=== PATIENT | female | born 1950 | race Caucasian/White ===

== ENCOUNTER 2017-06-23 20:33 | Inpatient (IN) | payer OTHER ==
[~2017-06-23] VITALS: Ht 170.2 cm; Wt 70.3 kg
[~2017-06-23 20:33] MED LIST: ACEPHEN650 M1 PR; ALBUTEROL2.5 MG/3 M INH/SOL; ALPRAZOLAM0.5 M4 PO; AMLODIPINE BES2.5 M1 PO; ASPIRIN EC81 M1 PO; ATORVASTATIN CA20 M1 PO; ATORVASTATIN CA40 M1 PO; COLACE100 M1 PO; DESITIN DIAPER28 GM TOP; DULCOLAX10 M1 RC; EPOGEN20000 UNIT INJ; FLEET ENEMA133 ML RC; FOLIC ACID1 M1 PO; FUROSEMIDE80 M1 PO; HUMALOG100 UNIT/2 SC; LANTUS SOL100 UNIT/1 SC; LASIX40 M1 PO; LEVEMIR100 UNIT/1 SC; LEVOXYL150 MCG PO; LYRICA75 M1 PO; MAPAP325 M1 PO; METOPROLOL TART25 M1 PO; MILK OF MA400 MG/52 PO; NITROGLYCERIN0.4 M1 SL; NITROGLYCERIN1 EACH TOP; NORCO 5-325 TA1 EACH PO; NYSTATIN15 G1 TOP; ONE DAILY MULT1 EAC2 PO; PLAVIX75 M1 PO; RABEPRAZOLE SOD20 M1 PO; SPIRIVA18 MCG INH; SYMBICORT 16010.2 GM INH; SYNTHROID125 MCG PO; SYNTHROID150 MCG PO; THIAMINE HCL100 M1 PO; VITAMIN D250000 UNIT PO; ZETIA10 M1 PO
--- NOTE | 2017-06-23 20:42 | ED DYSPNEA/ASTHMA COMPLAINT ---
History of Present Illness General Chief Complaint: Dyspnea (COPD, CHF, Other) Stated Complaint: BIBA FOR SOB Source: patient Exam Limitations: no limitations Vital Signs & Intake/Output Vital Signs & Intake/Output Vital Signs Date Time Temp Pulse Resp B/P B/P Pulse O2 O2 Flow FiO2 Mean Ox Delivery Rate 06/24 0101 97.9 98 17 133/61 94 Room Air 06/24 0012 97.0 89 20 154/70 96 Room Air 06/23 2259 98.4 86 18 135/66 98 Room Air 06/23 2243 98.2 86 18 158/72 95 Room Air 06/23 2127 100 Room Air 06/239 97.5 79 18 183/96 99 Room Air ED Intake and Output 06/24 0000 06/23 1200 Intake Total 0 Output Total Balance 0 Intake, Oral 0 Patient 155 lb Weight Allergies Coded Allergies: morphine (UNKNOWN 05/20/17) Reconcile Medications Acetaminophen (Mapap) 325 MG TABLET 2 TAB PO Q6H PRN PAIN/TEMP>100 (Reported) Acetaminophen (Acephen) 650 MG SUPP.RECT 1 SUPP [place] Q4H PRN PAIN/TEMP>100 ( Reported) Albuterol Sulfate 2.5 MG/3 ML (0.083 %) VIAL.NEB 1 Vial INH/JACKI Q4P RESP. ( Reported) Alprazolam 0.5 MG TABLET 0.25 MG PO QHS PRN ANXIETY (Reported) Amlodipine Besylate 2.5 MG TABLET 1 TAB PO DAILY HEART/BP (Reported) Aspirin (Ecotrin*) 81 MG TABLET.DR 1 TAB PO DAILY HEART/BLOOD (Reported) Atorvastatin Calcium 40 MG TABLET 1 TAB PO 1700 Heart Bisacodyl (Dulcolax) 10 MG SUPP.RECT 1 SUP RC DAILY CONSTIPATION (Reported) Budesonide/Formoterol Fumarate (Symbicort 160-4.5 Mcg Inhaler) 160 MCG-4.5 MCG/ ACTUATION HFA.AER.AD 2 PUF INH BID PRN copd Clopidogrel Bisulfate (Plavix) 75 MG TABLET 1 TAB PO DAILY CORONARY ARTERY DISEASE Cod Liver Oil/Zinc Oxide (Desitin Diaper Rash 40% Paste) 40 % PASTE..G. 1 RIAN TOP BID PRN RASH Docusate Sodium (Colace) 100 MG CAPSULE 1 CAP PO BID STOOL SOFTENER (Reported ) Epoetin Huey (Epogen) 20,000 UNIT/ML VIAL 1 ML INJ AD BLOOD (Reported) Ergocalciferol (Vitamin D2) (Vitamin D2) 50,000 UNIT CAPSULE 1 CAP PO Q30D SUPPLEMENT (Reported) Ezetimibe (Zetia) 10 MG TABLET 1 TAB PO DAILY CHOLESTEROL (Reported) Folic Acid 1 MG TABLET 1 TAB PO DAILY SUPPLEMENT (Reported) Furosemide (Lasix) 40 MG TABLET 1 TAB PO BID Heart Health Hydrocodone/Acetaminophen (Pelion 5-325 Tablet) 5 MG-325 MG TABLET 1 TAB PO Q6H PRN PAIN (Reported) Insulin Detemir (Levemir) 100 UNIT/ML VIAL 15 UNITS SC AT BEDTIME DM Insulin Lispro (Humalog) 100 UNIT/ML VIAL 0 SC SEE ADMIN CRITERIA DM <80 initiate hypoglycemia protocol 80-140 no change 141-180 2 units 181-240 3 units 241-300 4 units 301-350 6 units 351-400 8 units >400 12 units, inform Levothyroxine Sodium (Synthroid) 125 MCG TABLET 1 TAB PO DAILY AC Thyroid Magnesium Hydroxide (Milk Of Magnesia) 400 MG/5 ML ORAL.SUSP 30 ML PO DAILY PRN CONSTIPATION (Reported) Metoprolol Tartrate 25 MG TABLET 1 TAB PO BID CORONARY ARTERY DISEASE Multivitamin (One Daily Multivitamin) 1 EACH TABLET 1 TAB PO DAILY Supplement Na Phos,M-B/Na Phos,Di-Ba (Fleet Enema) 19 GRAM-7 GRAM/118 ML ENEMA 1 E RC DAILY PRN CONSTIPATION (Reported) Nitroglycerin (Nitroglycerin Patch) 0.4 MG/HOUR PATCH.TD24 0.4 MG TOP DAILY Heart Nystatin 100,000 UNIT/GRAM CREAM..G. 1 RIAN TOP BID Skin Pregabalin (Lyrica) 75 MG CAPSULE 1 CAP PO DAILY Neuropathy (Reported) Rabeprazole Sodium 20 MG TABLET.DR 1 TAB PO DAILY GI (Reported) Thiamine HCl 100 MG TABLET 1 TAB PO DAILY SUPPLEMENT (Reported) Tiotropium [place] (Spiriva) 18 MCG CAP.W.DEV 1 PUF INH DAILY PRN copd Triage Nurses Notes Reviewed? yes Onset: Abrupt Duration: hour(s): (1), better, gone now Timing: single episode today Severity: mild, moderate Activities at Onset: emotional stress Prior Episodes/Possible Cause: occasional episodes Associated Symptoms: anxiety LMP (ages 10-50): unknown : No Patient currently breastfeeds: No HPI: 66 y/o female past medical history of chronic kidney disease, diabetes, coronary artery disease, CHF and COPD presents for evaluation of shortness of breath. Patient states that she had an episode of panic and anxiety that was associated with shortness of breath. The symptoms lasted for approximately 15 minutes. She states that she took 0.25 mg of Xanax after the symptoms started. She states that the time she got to the emergency department she was feeling better. Currently she is asymptomatic and has no concerns. She states that the reason that she became panicked was because she had a stress test today and she was worried about the results. She denies any chest pain, hemoptysis, lower extremity edema, fever, nausea, vomiting or abdominal pain. No suicidal or homicidal ideation. (Lenny Fu) Past History Travel History Traveled to [place] past 21 day No Medical History Any Pertinent Medical History? see below for history Neurological: NONE Cardiovascular: hypertension, HEART FAILURE Renal: CHRONIC KIDNEY DISEASE Endocrine: diabetes History of MRSA: No History of VRE: No History of CDIFF: No Surgical History Surgical History: non-contributory Psychosocial History Who do you live with Spouse Services at Home None What is your primary language Kazakh Family History Family History, If Any: MOTHER FH: heart disease FATHER FH: heart disease Relation not specified for: Stroke or transient ischemic attack in sister Hx Contributory? No (Lenny Fu) Review of Systems Review of Systems Constitutional: Reports: no symptoms. EENTM: Reports: no symptoms. Respiratory: Reports: see HPI, short of breath. Cardiovascular: Reports: no symptoms. GI: Reports: no symptoms. Genitourinary: Reports: no symptoms. Musculoskeletal: Reports: no symptoms. Skin: Reports: no symptoms. Neurological/Psychological: Reports: anxiety. Hematologic/Endocrine: Reports: no symptoms. Immunologic/Allergic: Reports: no symptoms. All Other Systems: Reviewed and Negative (Lenny Fu) Physical Exam Physical Exam General Appearance: well developed/nourished, alert, awake, anxious, mild distress Head: atraumatic, normal appearance Eyes: Bilateral: normal appearance, PERRL, EOMI. Ears, Nose, Throat: normal pharynx, normal ENT inspection, hearing grossly normal Neck: normal inspection, supple, full range of motion Respiratory: normal breath sounds, chest non-tender, no respiratory distress, lungs clear Cardiovascular: regular rate/rhythm, normal peripheral pulses Peripheral Pulses: 2+ radial (R), 2+ radial (L) Gastrointestinal: normal bowel sounds, soft, non-tender, no organomegaly Extremities: normal inspection, normal range of motion, no edema Neurologic/Psych: no motor/sensory deficits, awake, alert, oriented x 3, normal gait Skin: intact, normal color, warm/dry Core Measures ACS in differential dx? Yes CVA/TIA Diagnosis No Sepsis Present: No Sepsis Focused Exam Completed? No (Lenny Fu) Progress Differential Diagnosis: asthma, AMI, bronchitis, CHF, COPD, musculoskeletal pain , pulmonary embolism, pneumonia, unstable angina, panic attack, anxiety Plan of Care: Orders Procedure Date/time Status PARTIAL THROMBOPLASTIN TIME 06/24 0655 Active TROPONIN LEVEL 06/24 0100 Complete EKG 06/24 0100 Active Patient Data 06/24 0053 Active EKG 06/24 0049 Active Admit to inpatient 06/24 0033 Active EKG 06/23 2341 Active FingerStick- Glucose 06/23 2259 Active Intake & Output 06/23 2125 Active URINALYSIS 06/23 2052 Complete TROPONIN LEVEL 06/23 2052 Complete COMPREHENSIVE METABOLIC PANEL 06/23 2052 Complete CBC WITHOUT DIFFERENTIAL 06/23 2052 Complete B-TYPE NATRIURETIC PEP (BNP) 06/23 2052 Complete EKG 06/23 2033 Active Current Medications Sig/Med Start time Last Medication Dose Stop Time Status Admin Nitroglycerin 2 GM Q6 06/24 0048 AC 06/24 (Nitro-Bid) 0101 Heparin Sodium 25,000 UNIT Q24H 06/24 0015 AC 06/24 (Porcine) 0054 (Heparin) Sodium Chloride 500 ML Insulin Detemir 25 UNITS ONCE ONE 06/23 2330 CAN (Levemir) 06/23 2331 Laboratory Tests 06/24/17 0027: Troponin I 0.02 06/23/172114: Anion Gap 14, Estimated GFR 32 L, BUN/Creatinine Ratio 20.0, Glucose 65, Calcium 10.0, Total Bilirubin 0.4, AST 49 H, ALT 42, Alkaline Phosphatase 100, Troponin I 0.02, Njq-P-Kbkraysyead Pept 3580 H, Total Protein 6.8, Albumin 3.9, Globulin 2.9, Albumin/Globulin Ratio 1.3, CBC w Diff NO MAN DIFF REQ, RBC 4.21, MCV 85.8, MCH 27.8, RDW 17.4 H, MPV 8.6, Gran % 58.0, Lymphocytes % 24.9, Monocytes % 12.2 H, Eosinophils % 4.3, Basophils % 0.6, Absolute Granulocytes 4.5, Absolute Lymphocytes 1.9, Absolute Monocytes 0.9 H, Absolute Eosinophils 0.3, Absolute Basophils 0, PUBS MCHC 32.4 L, Urine Color YEL, Urine Clarity CLEAR, Urine pH 7.0, Ur Specific [place] 1.010, Urine Protein 30 H, Urine Ketones NEG, Urine Nitrite NEG, Urine Bilirubin NEG, Urine Urobilinogen 0.2, Ur Leukocyte Esterase NEG, Ur Microscopic SEDIMENT EXAMINED, Urine RBC RARE, Urine Bacteria FEW H, Urine Hemoglobin TRACE-INTACT, Urine Glucose NEG Patient seen and evaluated. She currently is asymptomatic and feels well. She felt short of breath for approximately 15 minutes associated with extreme anxiety and panic symptoms. There was never any chest pain. Initial blood work is within normal limits including a negative EKG and troponin. Chest x-ray is clear. Patient's oxygen saturation is within normal limits. Patient was ambulated in the emergency department and did not desaturate. She remains asymptomatic. Patient will be kept in the emergency department for repeat EKG and troponin to rule out acute coronary syndrome. Around 11:45 PM patient had walked to the bathroom and was returning from the bathroom. She states that she suddenly felt chest pain and palpitations. The pain is located beneath her sternum. EKG ordered. EKG that was ordered after patient had started having chest pain reveals ST depressions in the chest leads. Patient will be admitted for unstable angina. Troponin ordered. Patient was also given nitroglycerin and aspirin. Patient sent to Dr. Arriaga pending admission Diagnostic Imaging: Viewed by Me: Radiology Read. Discussed w/RAD: Radiology Read. Radiology Impression: PATIENT: LORI BONILLA PRESENT AGE: 66 PATIENT ACCOUNT NO: [id number] : 50 LOCATION: [facility] ORDERING PHYSICIAN: Lenny CEDILLO SERVICE DATE: 06/23/17 EXAM TYPE: RAD - XRY-PORTABLE CHEST XRAY EXAMINATION: XR PORTABLE CHEST CLINICAL INFORMATION: 66-year-old female with shortness of breath. COMPARISON: Portable chest x-ray on 05/20/2017 and portable chest x-ray on 05/23/2017. (Pulmonary interstitial edema ). TECHNIQUE: Portable AP semierect view of the chest was obtained. FINDINGS: The prominent cardiac silhouette is unchanged. Pulmonary vascularity is normal. There is now no evidence of interstitial airspace pulmonary edema nor signs of pleural effusion. IMPRESSION: No signs of CHF at this time. DICTATED BY: Alfred James MD DATE/TIME DICTATED:06/23/172111 RETAIL BUSINESS MANAGER:DIVYA DATE /TIME TRANSCRIBED:06/23/172111 Initial ED EKG: normal sinus rhythm, non specific T wave abnormalities inferior leads Hand-Off Endorsed To: Kee Arriaga MD Endorsed Time: 2350 Pending: EKG, labs (Lenny Fu) Repeat EKG: changed (st depressions v4-v6) Comments: ekg#3... improvement in st seg depressions. (Kee Arriaga MD) Departure Departure Disposition: STILL A PATIENT Condition: Stable Referrals: Jose Francisco SHAW,Rob Valdovinos (PCP/Family) Departure Forms: Customer Survey General Discharge Information (Lenny Fu) Departure Clinical Impression Primary Impression: Unstable angina Comments 06/24/17, 0:35am... discussed with dr. goff who affirms plan for heparin, nitrates, aspirin. pt allergic to morphine... pt to be admitted to icu for close monitoring. Admission Note Spoke With: Poncho SHAW,Alfred Documentation of Exam: Documentation of any treatments & extenuating circumstances including Concerns Regarding Discharge (functional status, medication knowledge or non-compliance, living conditions, etc.) that warrant an admission rather than observation: pt with unstable angina with st segment depressions on EKG... follow up EKG is improved after interventions. pt merits icu level care for continual monitoring , ... discussed with cards. PA/REHABILITATION TEACHER Co-Sign Statement Statement: ED Attending supervision documentation- [x] I saw and evaluated the patient. I have also reviewed all the pertinent lab results and diagnostic results. I agree with the findings and the plan of care as documented in the PA's/REHABILITATION TEACHER's documentation. I assumed care of patient at 23:51, with the abnormal ekg...pt reported 8/10 substernal chest pain... pt given nitrates, aspirin, heparin, 02, with improvement in subsequent ekg. discussed with dr. morfin (cards) who concurs with plan. [] I have reviewed the ED Record and agree with the PA's/REHABILITATION TEACHER's documentation. [] Additions or exceptions (if any) to the PAs/REHABILITATION TEACHER's note and plan are summarized below: [] (Bart SHAW,Kee Villalta) Critical Care Note Critical Care Note Critical Care Time: 30-74 min (Khalif CEDILLO,Lenny)
--- NOTE | 2017-06-23 21:18 | RADIOLOGY REPORT ---
EXAMINATION: XR PORTABLE CHEST CLINICAL INFORMATION: 66-year-old female with shortness of breath. COMPARISON: Portable chest x-ray on 05/20/2017 and portable chest x-ray on 05/23/2017. (Pulmonary interstitial edema). TECHNIQUE: Portable AP semierect view of the chest was obtained. FINDINGS: The prominent cardiac silhouette is unchanged. Pulmonary vascularity is normal. There is now no evidence of interstitial airspace pulmonary edema nor signs of pleural effusion. IMPRESSION: No signs of CHF at this time.
[2017-06-23 21:29] LABS: ABSOLUTE BASOPHIL COUNT 0 /CUMM (0.0-0.2); ABSOLUTE EOSINOPHIL COUNT 0.3 /CUMM (0.0-0.7); ABSOLUTE GRANULOCYTE CT 4.5 /CUMM (1.4-6.5); ABSOLUTE LYMPH COUNT 1.9 /CUMM (1.2-3.4); ABSOLUTE MONOCYTE COUNT 0.9 /CUMM (0.10-0.60); BASOPHIL % 0.6 % (0.0-2.0); EOSINOPHIL % 4.3 % (0-5); HEMATOCRIT 36.2 % (37-47); MEAN CORPUSCULAR HGB 27.8 PG (27.0-31.0); MEAN CORPUSCULAR HGB CONC 32.4 G/DL (33.0-37.0); MEAN CORPUSCULAR VOLUME 85.8 FL (81.0-99.0); MEAN PLATELET VOLUME 8.6 FL (7.4-10.4); PLATELET COUNT 261 /CUMM (130-400); RBC DISTRIBUTION WIDTH 17.4 % (11.5-14.5); RED BLOOD CELL CT 4.21 /CUMM (4.20-5.40); WHITE BLOOD CELL COUNT 7.8 /CUMM (4.8-10.8)
--- NOTE | 2017-06-24 04:41 | History & Physical ---
Cameron SHAW,[facility] 06/24/17 0440: General Information and HPI MD Statement: I have seen and personally examined LORI BONILLA and documented this H&P. The patient is a 66 year old F who presented with a patient stated chief complaint of [chest pain]. Source of Information: patient Exam Limitations: no limitations History of Present Illness: Mr. 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 According to the patient, she has baseline anxiety for which she is on Xanax. Last night she has an episode of anxiety attack because she had a stress test today and she was worried about the results. Today she had another episode of anxiety attack around 7 PM and she decided to come to the ER. While in the ER on her way to the restroom she experienced central chest pain. Pain was nonradiating, 6-8/10 in intensity, which progressively got worse and stayed for 15-20 minutes. It was improved with sublingual nitroglycerin. Also reports palpitations associated with chest pain. Denies any previous similar episodes of chest pain and anxiety attacks. Denies any fever/chills, cough, sputum production, orthopnea, PND or worsening leg swelling Allergies/Medications Allergies: Coded Allergies: morphine (UNKNOWN 05/20/17) Home Med list Alprazolam 0.5 MG TABLET 0.5 MG PO BID PRN ANXIETY (Reported) Aspirin (Ecotrin*) 81 MG TABLET.DR 1 TAB PO DAILY HEART/BLOOD (Reported) Atorvastatin Calcium 40 MG TABLET 1 TAB PO 1700 Heart Budesonide/Formoterol Fumarate (Symbicort 160-4.5 Mcg Inhaler) 160 MCG-4.5 MCG/ ACTUATION HFA.AER.AD 2 PUF INH BID PRN copd Clopidogrel Bisulfate (Plavix) 75 MG TABLET 1 TAB PO DAILY CORONARY ARTERY DISEASE Docusate Sodium (Colace) 100 MG CAPSULE 1 CAP PO BID STOOL SOFTENER (Reported ) Epoetin Huey (Epogen) 20,000 UNIT/ML VIAL 1 ML INJ AD BLOOD (Reported) Ergocalciferol (Vitamin D2) (Vitamin D2) 50,000 UNIT CAPSULE 1 CAP PO ONCE A WEEK SUPPLEMENT (Reported) Ezetimibe (Zetia) 10 MG TABLET 1 TAB PO DAILY CHOLESTEROL (Reported) Ferrous Sulfate (IRON) 325 MG (65 MG IRON) TABLET 1 TAB PO DAILY SUPPLEMENT ( Reported) Folic Acid 1 MG TABLET 1 TAB PO DAILY SUPPLEMENT (Reported) Furosemide (Lasix) 40 MG TABLET 1 TAB PO BID Heart Health Hydrocodone/Acetaminophen ([place] 5-325 Tablet) 5 MG-325 MG TABLET 1 TAB PO Q6H PRN PAIN (Reported) Insulin Detemir (Levemir) 100 UNIT/ML VIAL 15 UNITS SC AT BEDTIME DM Insulin Lispro (Humalog) 100 UNIT/ML VIAL 0 SC SEE ADMIN CRITERIA DM <80 initiate hypoglycemia protocol 80-140 no change 141-180 2 units 181-240 3 units 241-300 4 units 301-350 6 units 351-400 8 units >400 12 units, inform Isosorbide Mononitrate (Isosorbide Mononitrate ER) 30 MG TAB.ER.24H 1 TAB PO DAILY angina . Levothyroxine Sodium (Synthroid) 125 MCG TABLET 1 TAB PO DAILY AC Thyroid Metoprolol Succinate 25 MG TAB 1 TAB PO DAILY blood pressure (Reported) Multivitamin (One Daily Multivitamin) 1 EACH TABLET 1 TAB PO DAILY Supplement Pregabalin (Lyrica) 75 MG CAPSULE 1 CAP PO BID neuropathy (Reported) Rabeprazole Sodium 20 MG TABLET.DR 1 TAB PO DAILY GI (Reported) Thiamine HCl (B-1) 100 MG TABLET 1 TAB PO DAILY SUPPLEMENT (Reported) Thiamine HCl 100 MG TABLET 1 TAB PO DAILY SUPPLEMENT (Reported) Tiotropium [place] (Spiriva) 18 MCG CAP.W.DEV 1 PUF INH DAILY PRN copd Past History Travel History Traveled to [place] past 21 day No Medical History Neurological: NONE Cardiovascular: hypertension, HEART FAILURE Gastrointestinal: colitis, GI Bleed Renal: CHRONIC KIDNEY DISEASE Endocrine: diabetes History of MRSA: No History of VRE: No History of CDIFF: No Surgical History Surgical History: non-contributory Past Family/Social History Family History Relations & Conditions if any MOTHER FH: heart disease FATHER FH: heart disease Relation not specified for: Stroke or transient ischemic attack in sister Psychosocial History Who Do You Live With? spouse Services at Home: None Smoking Status: Former Smoker ETOH Use: occasional use Illicit Drug Use: denies illicit drug use Functional Ability Ambulation: cane, walker Review of Systems Review of Systems Constitutional: Reports: no symptoms. EENTM: Reports: no symptoms. Cardiovascular: Reports: chest pain, palpitations. Respiratory: Reports: short of breath. GI: Reports: no symptoms. Genitourinary: Reports: no symptoms. Musculoskeletal: Reports: no symptoms. Skin: Reports: no symptoms. Neurological/Psychological: Reports: anxiety. Hematologic/Endocrine: Reports: no symptoms. Immunologic/Allergic: Reports: no symptoms. All Other Systems: Reviewed and Negative Exam & Diagnostic Data Last 24 Hrs of Vital Signs/I&O Vital Signs Date Time Temp Pulse Resp B/P B/P Pulse O2 O2 Flow FiO2 Mean Ox Delivery Rate 06/24 0531 97 Nasal 2.0L Cannula 06/24 0434 98.1 94 20 178/72 98 Nasal 2.0L Cannula 06/24 0101 97.9 98 17 133/61 94 Room Air 06/24 0012 97.0 89 20 154/70 96 Room Air 06/23 2259 98.4 86 18 135/66 98 Room Air 06/23 2243 98.2 86 18 158/72 95 Room Air 06/23 2127 100 Room Air 06/23 2039 97.5 79 18 183/96 99 Room Air Intake & Output 06/24 0800 06/24 0000 06/23 1600 Intake Total 0 Output Total Balance 0 Intake, Oral 0 Patient 155 lb 155 lb Weight Last 24 Hrs of Labs/Kevin: Laboratory Tests 06/24/17 0630: Sodium Pending, Potassium Pending, Chloride Pending, Carbon Dioxide Pending, Anion Gap Pending, BUN Pending, Creatinine Pending, BUN/Creatinine Ratio Pending , APTT Pending, CBC w Diff Pending, WBC Pending, RBC Pending, Hgb Pending, Hct Pending, MCV Pending, MCH Pending, RDW Pending, Plt Count Pending, MPV Pending, PUBS MCHC Pending 06/24/17 0027: Troponin I 0.02 06/23/175: Anion Gap 14, Estimated GFR 32 L, BUN/Creatinine Ratio 20.0, Glucose 65, Calcium 10.0, Total Bilirubin 0.4, AST 49 H, ALT 42, Alkaline Phosphatase 100, Troponin I 0.02, Uzw-U-Bmavdgiomic Pept 3580 H, Total Protein 6.8, Albumin 3.9, Globulin 2.9, Albumin/Globulin Ratio 1.3, CBC w Diff NO MAN DIFF REQ, RBC 4.21, MCV 85.8, MCH 27.8, RDW 17.4 H, MPV 8.6, Gran % 58.0, Lymphocytes % 24.9, Monocytes % 12.2 H, Eosinophils % 4.3, Basophils % 0.6, Absolute Granulocytes 4.5, Absolute Lymphocytes 1.9, Absolute Monocytes 0.9 H, Absolute Eosinophils 0.3, Absolute Basophils 0, PUBS MCHC 32.4 L, Urine Color YEL, Urine Clarity CLEAR, Urine pH 7.0, Ur Specific [place] 1.010, Urine Protein 30 H, Urine Ketones NEG, Urine Nitrite NEG, Urine Bilirubin NEG, Urine Urobilinogen 0.2, Ur Leukocyte Esterase NEG, Ur Microscopic SEDIMENT EXAMINED, Urine RBC RARE, Urine Bacteria FEW H, Urine Hemoglobin TRACE-INTACT, Urine Glucose NEG Microbiology 06/24 0500 UPPER RESP: Surveillance Culture - RECD Assessment/Plan Assessment: Mr. 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 Assessment and plan; 1. Chest pain/ unstable angina; Patient has LINDA score of 6 and even though her troponin level 2 was negative, she was found to have diffuse ST depressions on the EKG. - Admit the patient to ICU - We'll repeat troponins and EKG - Start the patient on IV heparin - Stool guaiac - Aspirin 325 mg x 1 - Continue nitroglycerin ointment, Plavix and high dose statin. - Cardiology consult 2. Diabetes; -Hold Oral Hypoglycemic agents. - ISS -ACCu checks 3. Chronic Medical conditions; - Continue Home medications. DVT prophylaxis; IV heparin Patient is full code As Ranked By This Provider Problem List: 1. Unstable angina Core Measures/Misc (02/15) Acute Coronary Syndrome ACS Diagnosis: Yes Last Known EF % 60 Congestive Heart Failure Congestive Heart Failure Diagnosis No Cerebrovascular Accident CVA/TIA Diagnosis: No VTE (View Protocol) VTE Risk Factors Age>40 No Mechanical VTE Prophylaxis d/t N/A MechProphylax Ordered No VTE Pharm Prophylaxis d/t NA PharmProphylax ordered Sepsis (View protocol) Sepsis Present: No Yvette Flanagan MD 06/24/17 0445: Resident Review Statement Resident Statement: examined this patient, discussed with international trade specialist, agreed with international trade specialist Other Findings: This is a 66-year-old female with past medical history for CK D III, diabetes with nephropathy/retinopathy, CAD status post 3 stents over 20 years ago, COPD and CHF who usually came in for chief complaint of shortness of breath. Around 7 PM today patient states that she became very anxious and worried about the results of the stress test that she had completed earlier this AM. Subsequently , she felt panicked, short of breath, and lightheaded. An ambulance was called and she states that after she had oxygen placed and her usual Xanax administered that she felt better. When she was evaluated in the ED initially she had no shortness of breath and was saturating well on room air. She never had a complaint of chest pain throughout the day. However, around 11:45 PM she got up to use the restroom in the ED and noted sudden onset chest pressure that was substernal, initially about a 6 out of 10. As she continued to walk to the bathroom and come back to sit down the chest pressure continued to worsen and increased to an 8 out of 10 sensation. It was associated with palpitations. She denies any radiation of the pain to jaw or to her shoulder. It was not associated with shortness of breath and was distinctly different from her previous anxiety attack. She states that she has never had this kind of chest pain. She was then given nitroglycerin which she states improved her chest pain. Notably, patient states that she had a panic attack that before the stress test as well. She does endorse baseline anxiety but this is a first time that she is ever experienced panic attacks. She denies current smoking but between the ages of [age] she smoked about half a pack per day. She endorses recreational use of alcohol and denies any IV drug abuse. Family history significant for OR in mother in her 50s. Surgical history pertinent for 3 stents placed and unknown back surgery. She was seen at in May 17 and was treated for colitis. During that admission she was found to have EKG changes with elevated troponin and treated for possible NSTEMI with heparin and medical management. The stress test today was a follow up of her previous admission. Physical exam: HEENT: Pupils equal and reactive to light bilaterally, extraocular movements intact. Neck: No JVD CV: Patient has normal S1 and S2 with 2 different murmurs. One is clearly systolic heard best at the right upper sternal border. The second murmur is shorter and perhaps diastolic at left sternal border and mitral area. No S3 appreciated. Pulmonary: Clear to auscultation bilaterally Abdomen: No tenderness, bowel sounds present 4. Lower extremity: 2+ edema in bilateral lower extremities. Assessment: This is a 66-year-old female with past medical history of HTN, IDDM, CAD s/p 3 stents, CHF, and COPD, who was initially brought in for shortness of breath due to anxiety. However in ED she developed typical anginal chest pain and subsequent EKG showed worsening ST depressions in all leads. Given EKG changes and chest pain in this patient with significant cardiac history there is concern for unstable angina. She has LINDA score of 6 with 41% risk of , OR or urgent revascularization by day 14. As such, admit patient to ICU for further monitoring and workup. 1. Unstable angina: Patient had typical anginal chest pain that did not remit at rest. It got better with nitroglycerin. Additionally, she has significant history of CAD and was seen recently in [facility] for an NSTEMI. Patient does not seem like she is in florid heart failure as her BNP is 3500 and with previous value noted at 19,800. Echo in May 21 shows mild LAE, TR, RVSP 45, mild , EF 65%. * Aspirin 325 * Continue Plavix * troponin EKG 3 * heparin drip * statin * nitroglycerin when necessary for pain * continue home metoprolol * oxygen when necessary * appreciate cardio consult * Hold Lasix * NOTE: Please verify meds in AM. 2. Diabetes: * NPO Insulin sliding scale * Fingerstick * Nothing by mouth for possible catheterization 3. COPD: * TRC 4.Anxiety: * Continue when necessary home Xanax 5. HTN: * Con't Amlodipine * Note pt got Nitro x2 in ED * Holding Lasix Alfred Isaac 06/24/17 0521: Attending MD Review Statement Attending Statement Attending MD Statement: examined this patient, discuss w/resident/PA/SQUIRREL MAN, agreed w/resident/PA/SQUIRREL MAN, reviewed EMR data (avail), reviewed images, amended to note Attending Assessment/Plan: CC: Shortness of breath PMH: HFpEF, mild , COPD, DM, HTN, CKD, KENN, RA, CAD s/p 3 stents (1993) Patient came to ER for acute episode of shortness of breath happened this evening. Patient underwent stress test earlier today. Patient usually feels anxious, had anxiety episode a night before stress test and she thought the shortness of breath episode was related to her anxiety. It was associated with mild dizziness but denied any chest pain at that time. She took a dose of benzodiazepine, came to ER for further evaluation and while in ER when she was going to bathroom she noticed chest pain which was substernal, nonradiating 6/10 in intensity which progressively worse to 8/10 in intensity, relieved by nitroglycerin and aspirin. Patient does not recall similar pain episodes before. She denies any cough, nasal congestion, sputum production, fever, chills, leg swellings, abdominal distention, presyncopal episode or syncope. Vitals: T 97.5, pulse 79, RR 18, blood pressure 183/96, saturating 94% on room air On exam: A O 3, cooperative, no acute distress, neck supple, JVD normal, no lymphadenopathy, mucosa moist, no focal neurological deficit, trace leg edema, no obvious skin rashes or inflammation CVS: S1-S2, RRR, systolic murmur A2. RS: Clear to auscultate bilaterally. Abdomen: Soft, NT, ND, bowel sounds present. Labs: CBC unremarkable, sodium 146, potassium 5.2, chloride 102, bicarbonate 30, BUN 32, creatinine 1.6, glucose 65, calcium 10.0, AST 49, ALT 42, alkaline phosphatase 100, troponin less than 0.02, proBNP [address] depression in anterolateral leads CXR: No signs of CHF at this time. A and P 66-year-old female with extensive past medical history presented in ER with acute shortness of breath episode happened this evening associated with dizziness, she had a stress test earlier today. She endorses similar episode a night before and cold relates both the episodes to anxiety but while in ER patient had chest pain which progressively worsened, substernal, relieved with nitroglycerin and aspirin. During that time patient had ST depression in anterolateral leads on ECG. First set of troponin negative, now patient is pain- free. General Assignment Reporter was called from ER, heparin drip was started. + Unstable angina + Hx of HFpEF, mild , COPD, DM, HTN, CKD, KENN, RA, CAD s/p 3 stents - Admit to ICU - Continuous telemetry monitoring - Serial troponin and EKGs - Cardiology consult in a.m. - Continue IV heparin, (please guaiac stool if not done) - Patient received aspirin in the ER - Continue home doses of beta kapil, statin - Continue her home medications - Sliding-scale insulin
--- NOTE | 2017-06-24 05:23 | Admission Certification ---
Admission Certification Certification Statement - As attending physician, I certify that at the time of - admission, based on clinical presentation, severity of - symptoms, need for further diagnostic testing and - therapeutic interventions, and risk of adverse outcomes - without in-hospital treatment, in my clinical assessment, - this patient requires an acute hospital stay for a minimum - of two nights or longer. I have also considered psychsocial - factors such as support system, advanced age, financial - issues, cognitive issues, and failed out-patient treatments, - past re-admission history, safety of patient, and lack of - compliance as applicable. Specific rationale supporting this admission is: unstable angina
--- NOTE | 2017-06-24 07:45 | Cons- CRCU ---
Ernestina SHAW,[facility] 06/24/17 0745: General Information and HPI Consulting Request Date of Consult: 06/24/17 Requested By: Dr Maria Victoria Pinto Source of Information: patient Exam Limitations: no limitations History of Present Illness: This is a 66-year-old female with past medical history for CKD stage III, diabetes complicated with nephropathy/retinopathy, CAD status post 3 stents over 20 years ago, COPD and CHF who came in with chief complaint of shortness of breath. Around 7 PM last night the patient states that she became very anxious and worried about the results of the stress test that she had completed earlier this AM. Subsequently, she felt short of breath, and lightheaded. An ambulance was called and she states that after she had oxygen placed and her usual Xanax administered after which she felt better. When she was evaluated in the ED initially she had no shortness of breath and was saturating well on room air. She never had a complaint of chest pain throughout the day. However, around 11: 45 PM she got up to use the restroom in the ED and noted sudden onset chest pressure that was substernal, initially about a 6 out of 10. As she continued to walk to the bathroom and come back to sit down the chest pressure continued to worsen and increased to an 8 out of 10 sensation. It was associated with palpitations. She denies any radiation of the pain to jaw or to her shoulder. It was not associated with shortness of breath and was distinctly different from her previous anxiety attack. She states that she has never had this kind of chest pain. She was then given nitroglycerin which she states improved her chest pain. Notably, patient states that she had a panic attack that before the stress test as well. She does endorse baseline anxiety but this is a first time that she is ever experienced panic attacks. She denies current smoking but between the ages of [age] she smoked about half a pack per day. She endorses recreational use of alcohol and denies any IV drug abuse. Family history significant for TN in mother in her 50s. Surgical history pertinent for 3 stents placed and unknown back surgery. She was seen at in May 17 and was treated for colitis. During that admission she was found to have EKG changes with elevated troponin and treated for possible NSTEMI with heparin and medical management. The stress test yesterday was a follow up of her previous admission. Allergies/Medications Allergies: Coded Allergies: morphine (UNKNOWN 05/20/17) Home Med List: Alprazolam 0.5 MG TABLET 0.5 MG PO BID PRN ANXIETY (Reported) Aspirin (Ecotrin*) 81 MG TABLET.DR 1 TAB PO DAILY HEART/BLOOD (Reported) Atorvastatin Calcium 40 MG TABLET 1 TAB PO 1700 Heart Budesonide/Formoterol Fumarate (Symbicort 160-4.5 Mcg Inhaler) 160 MCG-4.5 MCG/ ACTUATION HFA.AER.AD 2 PUF INH BID PRN copd Clopidogrel Bisulfate (Plavix) 75 MG TABLET 1 TAB PO DAILY CORONARY ARTERY DISEASE Docusate Sodium (Colace) 100 MG CAPSULE 1 CAP PO BID STOOL SOFTENER (Reported ) Epoetin Huey (Epogen) 20,000 UNIT/ML VIAL 1 ML INJ AD BLOOD (Reported) Ergocalciferol (Vitamin D2) (Vitamin D2) 50,000 UNIT CAPSULE 1 CAP PO ONCE A WEEK SUPPLEMENT (Reported) Ezetimibe (Zetia) 10 MG TABLET 1 TAB PO DAILY CHOLESTEROL (Reported) Ferrous Sulfate (IRON) 325 MG (65 MG IRON) TABLET 1 TAB PO DAILY SUPPLEMENT ( Reported) Folic Acid 1 MG TABLET 1 TAB PO DAILY SUPPLEMENT (Reported) Furosemide (Lasix) 40 MG TABLET 1 TAB PO BID Heart Health Hydrocodone/Acetaminophen ([place] 5-325 Tablet) 5 MG-325 MG TABLET 1 TAB PO Q6H PRN PAIN (Reported) Insulin Detemir (Levemir) 100 UNIT/ML VIAL 15 UNITS SC AT BEDTIME DM Insulin Lispro (Humalog) 100 UNIT/ML VIAL 0 SC SEE ADMIN CRITERIA DM <80 initiate hypoglycemia protocol 80-140 no change 141-180 2 units 181-240 3 units 241-300 4 units 301-350 6 units 351-400 8 units >400 12 units, inform Isosorbide Mononitrate (Isosorbide Mononitrate ER) 30 MG TAB.ER.24H 1 TAB PO DAILY angina . Levothyroxine Sodium (Synthroid) 125 MCG TABLET 1 TAB PO DAILY AC Thyroid Metoprolol Succinate 25 MG TAB 1 TAB PO DAILY blood pressure (Reported) Multivitamin (One Daily Multivitamin) 1 EACH TABLET 1 TAB PO DAILY Supplement Pregabalin (Lyrica) 75 MG CAPSULE 1 CAP PO BID neuropathy (Reported) Rabeprazole Sodium 20 MG TABLET. 1 TAB PO DAILY GI (Reported) Thiamine HCl (B-1) 100 MG TABLET 1 TAB PO DAILY SUPPLEMENT (Reported) Thiamine HCl 100 MG TABLET 1 TAB PO DAILY SUPPLEMENT (Reported) Tiotropium [place] (Spiriva) 18 MCG CAP.W.DEV 1 PUF INH DAILY PRN copd Review of Systems Review of Systems Constitutional: Reports: no symptoms. Cardiovascular: Denies: chest pain, palpitations. Respiratory: Denies: short of breath. GI: Reports: no symptoms. Musculoskeletal: Reports: no symptoms. Past History Travel History Traveled to [place] past 21 day No Medical History Neurological: NONE Cardiovascular: hypertension, HEART FAILURE Gastrointestinal: colitis, GI Bleed Renal: CHRONIC KIDNEY DISEASE Endocrine: diabetes Surgical History Surgical History: non-contributory Family History Relations & Conditions If Any: MOTHER FH: heart disease FATHER FH: heart disease Relation not specified for: Stroke or transient ischemic attack in sister Psychosocial History Where Do You Live? Home Who Do You Live With? spouse Services at Home: None Smoking Status: Former Smoker ETOH Use: occasional use Illicit Drug Use: denies illicit drug use Functional Ability Ambulation: cane, walker Exam & Diagnostic Data Last 24 Hrs of Vital Signs/I&O Vital Signs Date Time Temp Pulse Resp B/P B/P Pulse O2 O2 Flow FiO2 Mean Ox Delivery Rate 06/24 1028 98.4 81 16 155/60 06/24 1026 98.4 81 16 155/60 06/24 0800 99 Room Air Room Air 06/24 0800 98.4 84 18 146/66 99 Room Air Room Air 06/24 0531 97 Nasal 2.0L Cannula 06/24 0500 97 Room Air 06/24 0434 98.1 94 20 178/72 98 Nasal 2.0L Cannula 06/24 0101 97.9 98 17 133/61 94 Room Air 06/24 0012 97.0 89 20 154/70 96 Room Air 06/239 98.4 86 18 135/66 98 Room Air 06/23 2243 98.2 86 18 158/72 95 Room Air 06/23 2126 100 Room Air 06/23 2038 97.5 79 18 183/96 99 Room Air Intake & Output 06/24 1600 06/24 0800 06/24 0000 Intake Total 68 0 Output Total Balance 68 0 Intake, IV 68 Intake, Oral 0 Patient 155 lb 155 lb Weight Physical Exam General Appearance: well developed/nourished, no apparent distress, alert, awake , comfortable Head: atraumatic, normal appearance Eyes: Bilateral: normal appearance. Respiratory: normal breath sounds, chest non-tender, lungs clear Cardiovascular: regular rate/rhythm Gastrointestinal: normal bowel sounds, soft, non-tender Extremities: no edema Neurologic/Psych: awake, alert, oriented x 3 Last 48 Hrs of Labs/Kevin: Laboratory Tests 06/24/17 0630: Troponin I Cancelled 06/24/17 0630: Anion Gap 14, Estimated GFR 30 L, BUN/Creatinine Ratio 20.0, Troponin I 0.05, APTT 55 H, CBC w Diff NO MAN DIFF REQ, RBC 3.71 L, MCV 86.2, MCH 28.3, RDW 17.2 H, MPV 9.4, Gran % 64.4, Lymphocytes % 23.2, Monocytes % 7.8, Eosinophils % 4.1, Basophils % 0.5, Absolute Granulocytes 5.0, Absolute Lymphocytes 1.8, Absolute Monocytes 0.6, Absolute Eosinophils 0.3, Absolute Basophils 0, PUBS MCHC 32.8 L 06/24/17 0027: Troponin I 0.02 06/23/175: Anion Gap 14, Estimated GFR 32 L, BUN/Creatinine Ratio 20.0, Glucose 65, Calcium 10.0, Total Bilirubin 0.4, AST 49 H, ALT 42, Alkaline Phosphatase 100, Troponin I 0.02, Xtq-Y-Vkvuwxeqnia Pept 3580 H, Total Protein 6.8, Albumin 3.9, Globulin 2.9, Albumin/Globulin Ratio 1.3, CBC w Diff NO MAN DIFF REQ, RBC 4.21, MCV 85.8, MCH 27.8, RDW 17.4 H, MPV 8.6, Gran % 58.0, Lymphocytes % 24.9, Monocytes % 12.2 H, Eosinophils % 4.3, Basophils % 0.6, Absolute Granulocytes 4.5, Absolute Lymphocytes 1.9, Absolute Monocytes 0.9 H, Absolute Eosinophils 0.3, Absolute Basophils 0, PUBS MCHC 32.4 L, Urine Color YEL, Urine Clarity CLEAR, Urine pH 7.0, Ur Specific [place] 1.010, Urine Protein 30 H, Urine Ketones NEG, Urine Nitrite NEG, Urine Bilirubin NEG, Urine Urobilinogen 0.2, Ur Leukocyte Esterase NEG, Ur Microscopic SEDIMENT EXAMINED, Urine RBC RARE, Urine Bacteria FEW H, Urine Hemoglobin TRACE-INTACT, Urine Glucose NEG Assessment/Plan Impression/Plan: 66-year-old female with past medical history of HTN, IDDM, CAD s/p 3 stents, CHF , and COPD, who was initially brought in for shortness of breath due to anxiety. However in ED she developed typical anginal chest pain and subsequent EKG changes of ST depressions in all leads. Given EKG changes and chest pain in this patient with significant cardiac history there was concern for unstable angina. She has a LINDA score of 6 with 41% risk of , TN or urgent revascularization by day 14. Unstable Angina: Patient had typical anginal chest pain that did not remit at rest though she does mention improvement with SL Nitroglycerin. She has significant history of CAD and was seen recently in [facility] for an NSTEMI. Patient does not seem like she is in florid heart failure as her BNP is 3500 and with previous value noted at 19,800. Echo in May 21 shows mild LAE, TR, RVSP 45, mild , EF 65%. * Patient had a stress test yesterday which is reportedly normal with no signs of ischemia * She was offered a cardiac cath given her cardiac history, but at this point she refuses. * She will be managed medically. * Continue Aspirin and Plavix * Will add Imdur 30mg to home medications. * D/c heparin drip * Troponins have been negative x3 * Her EKG changes are suggestive of demand ischemia. * Continue atorvatatin * continue home metoprolol * appreciate cardio recs * Patient stable to be down graded to general medicine floor History of Diabetes: * Insulin sliding scale * Accucheks COPD: * TRC * continue home inhalers as needed. Anxiety: * Continue Xanax prn * Patient requests psych consult. History of Hypertension: * Con't Amlodipine and Furosemide. Diet: Diabetic diet DVT Prophylaxis: SC Heparin Code: Full Code Consult Acknowledgment - Thank you for your consult request. Dagoberto SHAW,[facility] 06/24/17 0958: Assessment/Plan Other Findings/Comments: Attending addendum Seen and examined independently Agree with above Mrs. 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 According to the patient, she has baseline anxiety for which she is on Xanax. Last night she has an episode of anxiety attack because she had a stress test today and she was worried about the results. Today she had another episode of anxiety attack around 7 PM and she decided to come to the ER. While in the ER on her way to the restroom she experienced central chest pain. Pain was nonradiating, 6-8/10 in intensity, which progressively got worse and stayed for 15-20 minutes. It was improved with sublingual nitroglycerin. Also reports palpitations associated with chest pain. Denies any previous similar episodes of chest pain and anxiety attacks. Denies any fever/chills, cough, sputum production, orthopnea, PND or worsening leg swelling When i saw her she was anxious and back to baseline Her ekg does have changes and her recent out pt ekg is not available to be compared Physical exam: HEENT: Pupils equal and reactive to light bilaterally, extraocular movements intact. Neck: No JVD CV: Patient has normal S1 and S2 with 2 different murmurs. One is clearly systolic heard best at the right upper sternal border. The second murmur is shorter and perhaps diastolic at left sternal border and mitral area. No S3 appreciated. Pulmonary: Clear to auscultation bilaterally Abdomen: No tenderness, bowel sounds present 4. Lower extremity: 2+ edema in bilateral lower extremities. 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, previous history of significant ischemic heart disease with previous stents in the early s, hypothyroidism on supplementation, chronic kidney disease stage III, significant rheumatoid arthritis on methotrexate before (seems to be off now), previous pancytopenia and her methotrexate had been held, obstructive sleep apnea not on cpap regularly, previous history of COPD not on any oxygen, previous multiple admissions in the past few months to [facility] and to [facility], and [facility], fracture fibula,previous history of delirium toxic encephalopathy and hyperkalemia and transaminitis, previous workup negative for venous thromboembolism, previous narcotic use with * Chest discomfort, with prob ekg changes (recent ekg not available), rule out acute coronary syndrome, Compounded by anxiety and prob panic attack * Recent Non-ST segment elevation TN with elevated troponin in dec, with previous history of multiple stents, T-wave inversions in the anterior and lateral leads in the past, pt s/p stress test yesterday and results pendin. * Chronic kidney disease with diabetic nephropathy * RA with previous methrotrexate use and now has been held * Mild to moderate COPD with no evidence of COPD exacerbation, pna or sig chf * Obstructive sleep apnea on CPAP, not using it regularly * Significant diabetes with complications including neuropathy, nephropathy, with previous hypoglycemia, now stable * Hypothyroidism on appropriate supplementation * Chronic constipation * Hypertension history, hyperlipidemia, previous GERD, neuropathy appears to be stable * Significant anxiety and depression due to multiple medical issues and chronic pain * Siatica with previous laminectomy with chronic pain RECOMMENDATION * Cardiology to evaluate * COnt all meds as ordered with heparin, DAPT and low dose betablocker * Avoid narcotics * Check tsh * Use Xanax only as needed, and psych eval may be needed * Tylenol for pain and avoid narcotics * Spiriva one puff daily, prn proair, * Resume out pt meds, hold narcotics and confirm her home meds with the [facility] Trasfer to tele and further plans per cardio Consult Acknowledgment - Thank you for your consult request.
[2017-06-24 07:50] LABS: ABSOLUTE BASOPHIL COUNT 0 /CUMM (0.0-0.2); ABSOLUTE EOSINOPHIL COUNT 0.3 /CUMM (0.0-0.7); ABSOLUTE LYMPH COUNT 1.8 /CUMM (1.2-3.4); ABSOLUTE MONOCYTE COUNT 0.6 /CUMM (0.10-0.60); BASOPHIL % 0.5 % (0.0-2.0); EOSINOPHIL % 4.1 % (0-5); GRANULOCYTE % 64.4 % (42.2-75.2); MEAN CORPUSCULAR HGB 28.3 PG (27.0-31.0); MEAN CORPUSCULAR HGB CONC 32.8 G/DL (33.0-37.0); MEAN CORPUSCULAR VOLUME 86.2 FL (81.0-99.0); MEAN PLATELET VOLUME 9.4 FL (7.4-10.4); PLATELET COUNT 220 /CUMM (130-400); RBC DISTRIBUTION WIDTH 17.2 % (11.5-14.5); RED BLOOD CELL CT 3.71 /CUMM (4.20-5.40); WHITE BLOOD CELL COUNT 7.8 /CUMM (4.8-10.8)
[2017-06-24 08:00] VITALS: BP 146/66
[2017-06-24 08:29] LABS: PTT 55 SEC (25-37)
--- NOTE | 2017-06-24 10:23 | Patient Discharge Instructions ---
Discharge Instructions General Discharge Information You were seen/treated for: Shortness of Breath Chest Pain Special Instructions: Please follow up with your PCP and tester operator helper within one week of discharge. intake appointment at [facility] on 06/29/17, at 1015 with Brianda, at [address], . Diet Continue normal diet: Yes Recommended Diet: Heart Healthy Activity Full Activity/No Limits: Yes Acute Coronary Syndrome Inclusion Criteria At DC or during hospital stay patient has or had the following: ACS DIAGNOSIS No Discharge Core Measures Meds if any: Prescribed or Continued at Discharge Meds if any: NOT Prescribed or Continued at Discharge Congestive Heart Failure Inclusion Criteria At DC or during hospital stay patient has or had the following: CHF DIAGNOSIS No Discharge Core Measures Meds if any: Prescribed or Continued at Discharge Meds if any: NOT Prescribed or Continued at Discharge Cerebrovascular accident Inclusion Criteria At DC or during hospital stay patient has or had the following: CVA/TIA Diagnosis No Discharge Core Measures Meds if any: Prescribed or Continued at Discharge Meds if any: NOT Prescribed or Continued at Discharge Venous thromboembolism Inclusion Criteria VTE Diagnosis No VTE Type NONE VTE Confirmed by (Test) NONE Discharge Core Measures - Per Current guidelines, there needs to be overlap - treatment for the first 5 days of Warfarin therapy. - If discharged on Warfarin prior to 5 days of - overlap therapy, the patient will need to be - assessed for post discharge needs including - *Post discharge parental anticoagulation - *Warfarin and/or parental anticoagulation education - *Follow up date to check INR post discharge At least 5 days overlap therapy as Inpatient No Meds if any: Prescribed or Continued at Discharge Note: Overlap Therapy is Warfarin and Anticoagulant Meds if any: NOT Prescribed or Continued at Discharge
--- NOTE | 2017-06-24 10:33 | Discharge Summary ---
Visit Information Visit Dates Admission Date: 06/24/17 Discharge Date: 06/27/17 Hospital Course Course Attending Physician: Dagoberto SHAW,Jordy Cortes Primary Care Physician: Rob Felton MD Hospital Course: Ms Small is a 66 year old female with past medical history of HTN, IDDM, CAD s/p 3 stents, CHF and COPD, who was initially brought in for shortness of breath due to anxiety. However in ED she experienced some chest discomfort with subsequent findings of diffuse ST depressions changes on EKG. Given her significant cardiac history with anginal symptoms/EKG changes there was concern for unstable angina. Below is a list of conditions she was admitted and treated for: Demand Ischemia: Patient was admitted and monitored for concerns of unstable angina. She was worked up for ACS and her troponins were negative. Her symptoms of chest discomfort with EKG changes were likely due to demand ischemia. Her outpatient stress test was reported to have normal perfusion. Given her cardiac history, she was offered consideration for cardiac catheteriazation but she refused and prefers medical therapy for angina. We added Ranexa and Imdur to her medication regimen for better control of her symtoms. She had a stable course in the hospital. She was discharge in stable disposition with recommendations to follow up with her director of strategic initiatives within one week of discharge. Anxiety: Patient reported that she started having difficulty breathing after she became concerned over the results of her stress tests that was performed a day prior to her admission. She has an underlying diagnosis of anxiety for which she was on Alprazolam. She was evaluated by our psychiatrist and recommended to be started on Ativan 0.5mg Q 4 times/D prn along with Gabapentin 100mg TID prn for anxiety. She has an intake appointment at [facility] on 06/29/17, at 1015 with [facility], at [address] [facility], . A card with this information was provided to the patient. History of Diabetes: She was maintained on Novolog insulin with regular Accucheks COPD: Continued on home inhalers. History of Hypertension: Continued on Amlodipine and Furosemide. DVT Prophylaxis: Maintained with SC Heparin Allergies: Coded Allergies: morphine (UNKNOWN 05/20/17) Significant Procedures: SERVICE DATE: 06/26/17- EXAM TYPE: NUC - LUNG SCAN (V/Q) FINDINGS: Ventilation images: On the single breath and equilibrium images there is homogeneous distribution of gas bilaterally. During the washout phase there is no abnormal retention. Perfusion images: No segmental perfusion defects are present. There is homogeneous distribution of activity bilaterally. There are no focal anatomic appearing perfusion defects present. IMPRESSION: Normal radionuclide lung ventilation perfusion scan. SERVICE DATE: 06/23/17 EXAM TYPE: RAD - XRY-PORTABLE CHEST XRAY FINDINGS: The prominent cardiac silhouette is unchanged. Pulmonary vascularity is normal. There is now no evidence of interstitial airspace pulmonary edema nor signs of pleural effusion. IMPRESSION: No signs of CHF at this time. Disposition Summary Disposition Principal Diagnosis: Unstable Angina Anxiety Additional Diagnosis: COPD Hypertension Diabetes Discharge Disposition: home health services Discharge Instructions General Discharge Information Code Status: Full Code Patient's Diet: Diabetic Patient's Activity: As tolerated Follow-Up Instructions/Appts: Please follow up with your PCP and director of strategic initiatives within one week of discharge. The patient has an intake appointment at [facility] on 06/29/17, at 1015 with [facility] at [address] [place] [address], . A card withthis information was provided to the patient. Medications at Discharge Discharge Medications: Stop taking the following medications: Alprazolam (Alprazolam) 0.5 MG TABLET ORAL TWICE DAILY as needed for ANXIETY Qty = 60 Continue taking these medications: Docusate Sodium (Colace) 100 MG CAPSULE 1 Capsule ORAL TWICE DAILY Comments: NOT GIVEN IN HOSPITAL Epoetin Huey (Epogen) 20,000 UNIT/ML VIAL 1 Millilit[place] INJECTABLE As Directed Comments: NOT GIVEN IN HOSPITAL Thiamine HCl (Thiamine HCl) 100 MG TABLET 1 Tablet ORAL DAILY Comments: Last Taken:06/27/17 Time:1000AM Rabeprazole Sodium (Rabeprazole Sodium) 20 MG TABLET.DR 1 Tablet ORAL DAILY Qty = 180 Comments: Last Taken: 06/27/17 Time: 1000AM Pregabalin (Lyrica) 75 MG CAPSULE 1 Capsule ORAL TWICE DAILY Qty = 60 Comments: NOT GIVEN IN HOSPITAL Aspirin (Ecotrin*) 81 MG TABLET.DR 1 Tablet ORAL DAILY Comments: Last Taken: 06/27/17 Time:1000AM Ergocalciferol (Vitamin D2) (Vitamin D2) 50,000 UNIT CAPSULE 1 Capsule ORAL ONCE A WEEK Comments: NOT GIVEN IN HOSPITAL Ezetimibe (Zetia) 10 MG TABLET 1 Tablet ORAL DAILY Qty = 90 Comments: Last Taken: 06/27/17 Time:1000AM Folic Acid (Folic Acid) 1 MG TABLET 1 Tablet ORAL DAILY Comments: Last Taken: 06/27/17 Time:1000AM Hydrocodone/Acetaminophen ([place] 5-325 Tablet) 5 MG-325 MG TABLET 1 Tablet ORAL Q6H as needed for PAIN Comments: NOT GIVEN IN HOSPITAL Clopidogrel Bisulfate (Plavix) 75 MG TABLET 1 Tablet ORAL DAILY Qty = 30 Comments: Last Taken: 06/27/17 Time:1000AM Furosemide (Lasix) 40 MG TABLET 1 Tablet ORAL TWICE DAILY Qty = 30 Comments: Last Taken: 06/27/17 Time:1000AM Insulin Detemir (Levemir) 100 UNIT/ML VIAL 15 Units Inject into fatty tissue AT BEDTIME Qty = 5 Comments: Last Taken: 06/26/17 Time: 2200PM Levothyroxine Sodium (Synthroid) 125 MCG TABLET 1 Tablet ORAL DAILY BEFORE BREAKFAST Qty = 30 Comments: NOT GIVEN IN HOSPITAL Multivitamin (One Daily Multivitamin) 1 EACH TABLET 1 Tablet ORAL DAILY Qty = 30 Comments: NOT GIVEN IN HOSPITAL Tiotropium [place] (Spiriva) 18 MCG CAP.W.DEV 1 Puff Inhale through mouth DAILY as needed for copd Qty = 1 Comments: Last Taken: 06/27/17 Time:1000AM Budesonide/Formoterol Fumarate (Symbicort 160-4.5 Mcg Inhaler) 160 MCG-4.5 MCG/ ACTUATION HFA.AER.AD 2 Puff Inhale through mouth TWICE DAILY as needed for copd Qty = 1 Comments: Last Taken: 06/27/17 Time:1000AM Atorvastatin Calcium (Atorvastatin Calcium) 40 MG TABLET 1 Tablet ORAL 5 PM Qty = 30 Comments: Last Taken: 06/26/17 Time:1700PM Insulin Lispro (Humalog) 100 UNIT/ML VIAL 0 Inject into fatty tissue SEE INSTRUCTIONS Qty = 5 Instructions: <80 initiate hypoglycemia protocol 80-140 no change 141-180 2 units 181-240 3 units 241-300 4 units 301-350 6 units 351-400 8 units >400 12 units, inform MD Comments: Last Taken: 06/27/17 Time: 0800AM Metoprolol Succinate (Metoprolol Succinate) 25 MG TAB 1 Tablet ORAL DAILY Comments: Last Taken: 06/27/17 Time: 1000AM Ferrous Sulfate (IRON) 325 MG (65 MG IRON) TABLET 1 Tablet ORAL DAILY Comments: NOT GIVEN IN HOSPITAL Start taking the following new medications: Lorazepam (Lorazepam) 0.5 MG TABLET 1 Tablet ORAL 4 TIMES A DAY as needed for ANXIETY Qty = 45 No Refills Instructions: ONLY TAKE IF SEVERE ANXIETY OR PANIC Comments: NOT GIVEN IN HOPSITAL Gabapentin (Gabapentin) 100 MG CAPSULE 1 Capsule ORAL THREE TIMES DAILY Qty = 90 No Refills Instructions: . Comments: Last Taken: 06/26/17 Time: 2100PM Isosorbide Mononitrate (Isosorbide Mononitrate ER) 60 MG TAB.ER.24H 1 Tablet ORAL DAILY Qty = 30 No Refills Instructions: . Comments: Last Taken: 06/27/17 Time: 1000AM Ranolazine (Ranexa) 500 MG TAB.ER.12H 1 Tablet ORAL TWICE DAILY Qty = 60 No Refills Instructions: . Comments: Last Taken: 06/27/17 Time: 1000AM Copies To: Jose Francisco SHAW,Rob Valdovinos
--- NOTE | 2017-06-24 11:02 | Cons- Cardiology ---
General Information and HPI Consulting Request Date of Consult: 06/24/17 Requested By: Dagoberto SHAW,Jordy Cortes Reason for Consult: Coronary artery disease; EKG changes Source of Information: patient, old records History of Present Illness: This is a 66-year-old female with past medical history of known coronary artery disease with remote PCI, diabetes mellitus, CKD, COPD, sleep apnea, hypertension , inflammatory arthritis, and hypertension who presents with a chief complaint of anxiety and moderate intensity chest discomfort. The patient tells me "I had a panic attack" and then subsequently began experiencing some nonradiating sternal chest discomfort with some improvement with nitroglycerin. Of note the patient had a type II myocardial infarction in May with no regional wall motion abnormalities by echo can't. She did undergo a nuclear stress test in our office yesterday and was very anxious about the pending results which she feels triggered a panic attack. This morning she is asymptomatic. She denies headache, slurring of speech, syncope, proximal nocturnal dyspnea, or focal weakness. Denies diaphoresis. Allergies/Medications Allergies: Coded Allergies: morphine (UNKNOWN 05/20/17) Home Med List: Acetaminophen (Mapap) 325 MG TABLET 2 TAB PO Q6H PRN PAIN/TEMP>100 (Reported) Acetaminophen (Acephen) 650 MG SUPP.RECT 1 SUPP MN Q4H PRN PAIN/TEMP>100 ( Reported) Albuterol Sulfate 2.5 MG/3 ML (0.083 %) VIAL.NEB 1 Vial INH/JACKI Q4P RESP. ( Reported) Alprazolam 0.5 MG TABLET 0.25 MG PO QHS PRN ANXIETY (Reported) Amlodipine Besylate 2.5 MG TABLET 1 TAB PO DAILY HEART/BP (Reported) Aspirin (Ecotrin*) 81 MG TABLET.DR 1 TAB PO DAILY HEART/BLOOD (Reported) Atorvastatin Calcium 40 MG TABLET 1 TAB PO 1700 Heart Bisacodyl (Dulcolax) 10 MG SUPP.RECT 1 SUP RC DAILY CONSTIPATION (Reported) Budesonide/Formoterol Fumarate (Symbicort 160-4.5 Mcg Inhaler) 160 MCG-4.5 MCG/ ACTUATION HFA.AER.AD 2 PUF INH BID PRN copd Clopidogrel Bisulfate (Plavix) 75 MG TABLET 1 TAB PO DAILY CORONARY ARTERY DISEASE Cod Liver Oil/Zinc Oxide (Desitin Diaper Rash 40% Paste) 40 % PASTE..G. 1 RIAN TOP BID PRN RASH Docusate Sodium (Colace) 100 MG CAPSULE 1 CAP PO BID STOOL SOFTENER (Reported ) Epoetin Huey (Epogen) 20,000 UNIT/ML VIAL 1 ML INJ AD BLOOD (Reported) Ergocalciferol (Vitamin D2) (Vitamin D2) 50,000 UNIT CAPSULE 1 CAP PO Q30D SUPPLEMENT (Reported) Ezetimibe (Zetia) 10 MG TABLET 1 TAB PO DAILY CHOLESTEROL (Reported) Folic Acid 1 MG TABLET 1 TAB PO DAILY SUPPLEMENT (Reported) Furosemide (Lasix) 40 MG TABLET 1 TAB PO BID Heart Health Hydrocodone/Acetaminophen ([place] 5-325 Tablet) 5 MG-325 MG TABLET 1 TAB PO Q6H PRN PAIN (Reported) Insulin Detemir (Levemir) 100 UNIT/ML VIAL 15 UNITS SC AT BEDTIME DM Insulin Lispro (Humalog) 100 UNIT/ML VIAL 0 SC SEE ADMIN CRITERIA DM <80 initiate hypoglycemia protocol 80-140 no change 141-180 2 units 181-240 3 units 241-300 4 units 301-350 6 units 351-400 8 units >400 12 units, inform Isosorbide Mononitrate (Isosorbide Mononitrate ER) 30 MG TAB.ER.24H 1 TAB PO DAILY angina Levothyroxine Sodium (Synthroid) 125 MCG TABLET 1 TAB PO DAILY AC Thyroid Magnesium Hydroxide (Milk Of Magnesia) 400 MG/5 ML ORAL.SUSP 30 ML PO DAILY PRN CONSTIPATION (Reported) Metoprolol Tartrate 25 MG TABLET 1 TAB PO BID CORONARY ARTERY DISEASE Multivitamin (One Daily Multivitamin) 1 EACH TABLET 1 TAB PO DAILY Supplement Na Phos,M-B/Na Phos,Di-Ba (Fleet Enema) 19 GRAM-7 GRAM/118 ML ENEMA 1 E RC DAILY PRN CONSTIPATION (Reported) Nitroglycerin (Nitroglycerin Patch) 0.4 MG/HOUR PATCH.TD24 0.4 MG TOP DAILY Heart Nystatin 100,000 UNIT/GRAM CREAM..G. 1 RIAN TOP BID Skin Pregabalin (Lyrica) 75 MG CAPSULE 1 CAP PO DAILY Neuropathy (Reported) Rabeprazole Sodium 20 MG TABLET.DR 1 TAB PO DAILY GI (Reported) Thiamine HCl 100 MG TABLET 1 TAB PO DAILY SUPPLEMENT (Reported) Tiotropium [place] (Spiriva) 18 MCG CAP.W.DEV 1 PUF INH DAILY PRN copd Current Medications: Current Medications Sig/Med Start time Last Medication Dose Route Stop Time Status Admin Acetaminophen 975 MG ONCE ONE 06/24 0100 DC 06/24 PO 06/24 010 010 Acetaminophen 0 .STK-MED ONE 06/24 0059 DC PO Alprazolam 0.25 MG AT BEDTIME NEED.. 06/24 0515 AC PO 07/01 0514 Amlodipine Besylate 2.5 MG DAILY 06/24 1000 AC 06/24 PO 1028 Aspirin 0 .STK-MED ONE 06/24 0010 DC PO Aspirin 325 MG ONCE ONE 06/23 2345 DC 06/24 PO 06/23 2346 0012 Aspirin Buffered 81 MG DAILY 06/24 1000 AC 06/24 PO 1026 Atorvastatin Calcium 40 MG 1700 06/24 1700 AC PO Clopidogrel Bisulfate 75 MG DAILY 06/24 1000 AC 06/24 PO 1026 Heparin Sodium 0 .STK-MED ONE 06/24 005 DC (Porcine) .ROUTE Heparin Sodium 4,000 UNIT ONCE ONE 06/245 DC 06/24 (Porcine) IV 06/24 0016 0053 Heparin Sodium 25,000 UNIT Q24H 06/24 0015 AC 06/24 (Porcine) IV 0054 Sodium Chloride 500 ML Insulin Detemir 25 UNITS ONCE ONE 06/24 0100 DC 06/24 SC 06/24 100 010 Insulin Detemir 25 UNITS ONCE ONE 06/23 2330 CAN SC 06/23 2331 Insulin Human Regular 0 Q6 06/24 0600 AC 06/24 SC 0817 Lorazepam 0 .STK-MED ONE 06/23 2134 DC PO Lorazepam 1 MG ONE ONE 06/23 2129 DC 06/23 PO 06/23 2130 213 Metoprolol Tartrate 25 MG BID 06/24 1000 AC 06/24 PO 1026 Nitroglycerin 0.4 MG ONCE ONE 06/24 0100 DC 06/24 SL 06/24 0101 0101 Nitroglycerin 0 .STK-MED ONE 06/24 010 DC TOP Nitroglycerin 2 GM Q6 06/24 0048 AC 06/24 TOP 0630 Nitroglycerin 0 .STK-MED ONE 06/24 0010 DC SL Nitroglycerin 0.4 MG ONCE ONE 06/23 2345 DC 06/24 06/23 2346 0012 Review of Systems Review of Systems: Review of systems as per HPI. The remainder of a 10 point review of systems was reviewed and was otherwise negative. Past History Travel History Traveled to [place] past 21 day No Medical History Neurological: NONE Cardiovascular: hypertension, HEART FAILURE Gastrointestinal: colitis, GI Bleed Renal: CHRONIC KIDNEY DISEASE Endocrine: diabetes Surgical History Surgical History: non-contributory Family History Relations & Conditions If Any: MOTHER FH: heart disease FATHER FH: heart disease Relation not specified for: Stroke or transient ischemic attack in sister Psychosocial History Where Do You Live? Home Who Do You Live With? spouse Services at Home: None Smoking Status: Former Smoker ETOH Use: occasional use Illicit Drug Use: denies illicit drug use Functional Ability Ambulation: cane, walker Exam & Diagnostic Data Vital Signs and I&O Vital Signs Date Time Temp Pulse Resp B/P B/P Pulse O2 O2 Flow FiO2 Mean Ox Delivery Rate 06/24 1028 98.4 81 16 155/60 06/24 1026 98.4 81 16 155/60 06/24 0531 97 Nasal 2.0L Cannula 06/24 0500 97 Room Air 06/24 0434 98.1 94 20 178/72 98 Nasal 2.0L Cannula 06/24 0101 97.9 98 17 133/61 94 Room Air 06/24 0012 97.0 89 20 154/70 96 Room Air 06/23 2259 98.4 86 18 135/66 98 Room Air 06/23 2243 98.2 86 18 158/72 95 Room Air 06/23 2127 100 Room Air 06/23 2039 97.5 79 18 183/96 99 Room Air Intake & Output 06/24 1600 06/24 0800 06/24 0000 06/23 1600 06/23 0800 06/23 0000 Intake Total 68 0 Output Total Balance 68 0 Intake, IV 68 Intake, Oral 0 Patient 155 lb 155 lb Weight Physical Exam: General: no apparent distress. Alert. Eyes: No obvious scleral icterus. HEENT: No jugular venous distention or abnormal jugular venous pulsations. Cardiovascular: Normal intensity S1/S2. One out of 6 systolic murmur Respiratory: Lungs clear to auscultation bilaterally. Abdomen: Soft, nontender with no guarding or rebound tenderness. Musculoskeletal: No clubbing or cyanosis noted Skin: Warm Neurologic: No gross focal deficits noted. Lymph: No gross lymphadenopathy. Labs/Kevin Results: Laboratory Tests 06/24 06/24 06/24 0630 0630 0027 Chemistry Sodium (137 - 145 mmol/L) 143 Potassium (3.5 - 5.1 mmol/L) 3.9 Chloride (98 - 107 mmol/L) 101 Carbon Dioxide (22 - 30 mmol/L) 28 Anion Gap (5 - 16) 14 BUN (7 - 17 mg/dL) 34 H Creatinine (0.5 - 1.0 mg/dL) 1.7 H Estimated GFR (>60 ml/min) 30 L BUN/Creatinine Ratio (7 - 25 %) 20.0 Troponin I (< 0.11 ng/ml) Cancelled 0.05 0.02 Coagulation APTT (25 - 37 SEC) 55 H Hematology CBC w Diff NO MAN DIFF REQ WBC (4.8 - 10.8 /CUMM) 7.8 RBC (4.20 - 5.40 /CUMM) 3.71 L Hgb (12.0 - 16.0 G/DL) 10.5 L Hct (37 - 47 %) 32.0 L MCV (81.0 - 99.0 FL) 86.2 MCH (27.0 - 31.0 PG) 28.3 RDW (11.5 - 14.5 %) 17.2 H Plt Count (130 - 400 /CUMM) 220 MPV (7.4 - 10.4 FL) 9.4 Gran % (42.2 - 75.2 %) 64.4 Lymphocytes % (20.5 - 51.1 %) 23.2 Monocytes % (1.7 - 9.3 %) 7.8 Eosinophils % (0 - 5 %) 4.1 Basophils % (0.0 - 2.0 %) 0.5 Absolute Granulocytes (1.4 - 6.5 /CUMM) 5.0 Absolute Lymphocytes (1.2 - 3.4 /CUMM) 1.8 Absolute Monocytes (0.10 - 0.60 /CUMM) 0.6 Absolute Eosinophils (0.0 - 0.7 /CUMM) 0.3 Absolute Basophils (0.0 - 0.2 /CUMM) 0 PUBS MCHC (33.0 - 37.0 G/DL) 32.8 L 06/23 2114 Chemistry Sodium (137 - 145 mmol/L) 146 H Potassium (3.5 - 5.1 mmol/L) 5.2 H Chloride (98 - 107 mmol/L) 102 Carbon Dioxide (22 - 30 mmol/L) 30 Anion Gap (5 - 16) 14 BUN (7 - 17 mg/dL) 32 H Creatinine (0.5 - 1.0 mg/dL) 1.6 H Estimated GFR (>60 ml/min) 32 L BUN/Creatinine Ratio (7 - 25 %) 20.0 Glucose (65 - 99 mg/dL) 65 Calcium (8.4 - 10.2 mg/dL) 10.0 Total Bilirubin (0.2 - 1.3 mg/dL) 0.4 AST (14 - 36 U/L) 49 H ALT (9 - 52 U/L) 42 Alkaline Phosphatase (<127 U/L) 100 Troponin I (< 0.11 ng/ml) 0.02 [id number] Pept (<125 pg/mL) 3580 H Total Protein (6.3 - 8.2 g/dL) 6.8 Albumin (3.5 - 5.0 g/dL) 3.9 Globulin (1.9 - 4.2 gm/dL) 2.9 Albumin/Globulin Ratio (1.1 - 2.2 %) 1.3 Hematology CBC w Diff NO MAN DIFF REQ WBC (4.8 - 10.8 /CUMM) 7.8 RBC (4.20 - 5.40 /CUMM) 4.21 Hgb (12.0 - 16.0 G/DL) 11.7 L Hct (37 - 47 %) 36.2 L MCV (81.0 - 99.0 FL) 85.8 MCH (27.0 - 31.0 PG) 27.8 RDW (11.5 - 14.5 %) 17.4 H Plt Count (130 - 400 /CUMM) 261 MPV (7.4 - 10.4 FL) 8.6 Gran % (42.2 - 75.2 %) 58.0 Lymphocytes % (20.5 - 51.1 %) 24.9 Monocytes % (1.7 - 9.3 %) 12.2 H Eosinophils % (0 - 5 %) 4.3 Basophils % (0.0 - 2.0 %) 0.6 Absolute Granulocytes (1.4 - 6.5 /CUMM) 4.5 Absolute Lymphocytes (1.2 - 3.4 /CUMM) 1.9 Absolute Monocytes (0.10 - 0.60 /CUMM) 0.9 H Absolute Eosinophils (0.0 - 0.7 /CUMM) 0.3 Absolute Basophils (0.0 - 0.2 /CUMM) 0 PUBS MCHC (33.0 - 37.0 G/DL) 32.4 L Urines Urine Color (YEL,AMB,STR) YEL Urine Clarity (CLEAR) CLEAR Urine pH (5.0 - 8.0) 7.0 Ur Specific [place] (1.001 - 1.035) 1.010 Urine Protein (NEG,<30 MG/DL) 30 H Urine Ketones (NEG) NEG Urine Nitrite (NEG) NEG Urine Bilirubin (NEG) NEG Urine Urobilinogen (0.1 - 1.0 EU/dl) 0.2 Ur Leukocyte Esterase (NEG) NEG Ur Microscopic SEDIMENT EXAMINED Urine RBC (0 - 5 /HPF) RARE Urine Bacteria (NEG/NONE) FEW H Urine Hemoglobin (NEG) TRACE-INTACT Urine Glucose (N MG/DL) NEG Diagnostic Data EKG Results Tracing personally reviewed showed sinus rhythm at 87 bpm with mild lateral ST depressions CXR Results No signs of CHF at this time. Other Results Telemetry tracings were personally reviewed and shows sinus rhythm Pharmacologic nuclear stress test done as outpatient yesterday showed normal perfusion pattern Assessment/Plan Assessment/Plan 1. Chest discomfort with EKG changes and negative troponins are likely due to demand ischemia in the setting of anxiety attack 2. Chronic anxiety 3. Coronary artery disease with history of remote PCI 4. COPD/sleep apnea 5. Diabetes 6. HTN The patient's episode likely represents an episode of demand ischemia in the setting of known coronary artery disease; appears to have been triggered by an anxiety attack. She is hemodynamically stable with no arrhythmias on telemetry and serial troponins are negative. She had a nuclear stress test yesterday that showed grossly normal perfusion. Recent echocardiogram on prior hospitalization showed no regional wall motion abnormalities. I did discuss my suspicion that this was due to cardiac ischemia and discussed potential options including the possibility of a cardiac catheterization; at this time she declines a cardiac catheterization and prefers attempt at medical management. She should be continued on her outpatient medication regimen for known coronary artery disease and I would favor adding Imdur 30 mg by mouth daily for additional antianginal management. She will likely also benefit from more aggressive therapy for her recurrent anxiety in the future. She is instructed to return to the hospital via 911 if any new or recurrent symptoms. She should follow-up in our office within one week of discharge. Zac Bishop MD FAC Consult Acknowledgment - Thank you for your consult request.
[2017-06-24] MEDS ORDERED: ISOSORBIDE MONO30 M1 PO ×2 (11:21→11:33)
[2017-06-24] MEDS ORDERED: TOPROL XL25 M1 PO (13:34)
[2017-06-24] MEDS ORDERED: METOPROLOL SUCC25 M1 PO (13:38)
[2017-06-24] MEDS ORDERED: B-1100 MG PO (14:40)
[2017-06-24] MEDS ORDERED: FOLIC ACID1 M1 PO (14:40)
[2017-06-24] MEDS ORDERED: IRON325 M3 PO (14:42)
[2017-06-24 16:00] VITALS: BP 140/60
[2017-06-25] VITALS: BP 140/80
[2017-06-25 05:03] LABS: ABSOLUTE BASOPHIL COUNT 0.1 /CUMM (0.0-0.2); ABSOLUTE EOSINOPHIL COUNT 0.3 /CUMM (0.0-0.7); ABSOLUTE GRANULOCYTE CT 3.6 /CUMM (1.4-6.5); ABSOLUTE LYMPH COUNT 1.4 /CUMM (1.2-3.4); ABSOLUTE MONOCYTE COUNT 0.6 /CUMM (0.10-0.60); BASOPHIL % 0.9 % (0.0-2.0); EOSINOPHIL % 4.7 % (0-5); GRANULOCYTE % 61.2 % (42.2-75.2); HEMATOCRIT 32.1 % (37-47); MEAN CORPUSCULAR HGB 28.5 PG (27.0-31.0); MEAN CORPUSCULAR VOLUME 86.3 FL (81.0-99.0); MEAN PLATELET VOLUME 8.9 FL (7.4-10.4); PLATELET COUNT 223 /CUMM (130-400); RBC DISTRIBUTION WIDTH 16.9 % (11.5-14.5); RED BLOOD CELL CT 3.72 /CUMM (4.20-5.40); WHITE BLOOD CELL COUNT 5.9 /CUMM (4.8-10.8)
--- NOTE | 2017-06-25 07:39 | PN- Resident CRCU ---
Subjective HPI/CRCU Issues: Chest Pain SOB Anxiety 24 Hour Events: No events overnight. Objective Vital Signs & I&O Last 8 Hrs of Vitals and I&O: Intake & Output 06/25 1600 Intake Total 800 Output Total Balance 800 Intake, Oral 800 Exam General Appearance: well developed/nourished, no apparent distress, alert, awake , anxious Head: atraumatic, normal appearance Respiratory: normal breath sounds, chest non-tender, lungs clear Cardiovascular: regular rate/rhythm Gastrointestinal: soft, non-tender Extremities: no edema Cranial Nerves: normal hearing, normal speech Skin: intact, normal color, warm/dry Skin Temp/Moisture Exam: Warm/Dry Sepsis Skin Exam (color): Normal for Ethnicity Current Medications: Current Medications Sig/Med Start time Last Medication Dose Route Stop Time Status Admin Alprazolam 0.5 MG BID PRN 06/24 1330 DC PO 07/01 1329 Amlodipine Besylate 5 MG DAILY 06/26 1000 AC PO Amlodipine Besylate 2.5 MG ONCE ONE 06/25 1430 DC 06/25 PO 06/25 1431 1431 Amlodipine Besylate 2.5 MG DAILY 06/24 1000 DC 06/24 PO 1028 Aspirin Buffered 81 MG DAILY 06/24 1000 AC 06/25 PO 0817 Atorvastatin Calcium 40 MG 1700 06/24 1700 AC 06/24 PO 1654 Budesonide/ 2 PUF BID 06/24 1500 AC 06/25 Formoterol Fumarate INH 0819 Clopidogrel Bisulfate 75 MG DAILY 06/24 1000 AC 06/25 PO 0818 Ezetimibe 10 MG DAILY 06/25 1000 AC 06/25 PO 0818 Famotidine 20 MG DAILY 06/25 1000 AC 06/25 PO 0818 Folic Acid 1 MG DAILY 06/25 1000 AC 06/25 PO 0817 Furosemide 40 MG BID 06/24 2200 AC 06/25 PO 0818 Gabapentin 100 MG Q8 06/25 1145 AC 06/25 PO 1432 Heparin Sodium 5,000 UNIT Q8 06/24 2200 AC 06/25 (Porcine) SC 1432 Insulin Aspart 0 TIDAC 06/24 1200 AC 06/25 SC 1219 Insulin Detemir 20 UNITS AT BEDTIME 06/25 2200 AC SC Insulin Detemir 15 UNITS DAILY 06/25 1000 DC SC Insulin Detemir 7 UNITS BID 06/25 1000 DC 06/25 SC 1044 Isosorbide 30 MG DAILY 06/24 1501 AC 06/25 Mononitrate PO 0817 Lorazepam 0.5 MG ONCE ONE 06/25 1500 DC 06/25 IV 06/25 1501 1457 Lorazepam 0.5 MG ONCE ONE 06/24 1915 DC 06/24 IV 06/24 Lorazepam 0.5 MG BID PRN 06/24 1730 AC 06/25 PO 07/01 1729 0818 Metoprolol Succinate 25 MG DAILY 06/25 1000 AC 06/25 PO 1044 Metoprolol Tartrate 25 MG BID 06/24 1000 DC 06/24 PO 2222 Ranolazine 500 MG BID 06/25 1000 AC 06/25 PO 1045 Thiamine HCl 100 MG DAILY 06/25 1000 AC 06/25 PO 0818 Tiotropium [place] 1 PUF DAILY 06/24 1500 AC 06/25 INH 0819 Impression/Plan Impression/Problem List Impression: 66-year-old female with past medical history of HTN, IDDM, CAD s/p 3 stents, CHF , and COPD, who was initially brought in for shortness of breath due to anxiety. However in ED she developed typical anginal chest pain and subsequent EKG changes of ST depressions in all leads. Given EKG changes and chest pain in this patient with significant cardiac history there was concern for unstable angina. She has a LINDA score of 6 with 41% risk of , FL or urgent revascularization by day 14. Unstable Angina: Patient had typical anginal chest pain that did not remit at rest though she does mention improvement with SL Nitroglycerin. She has significant history of CAD and was seen recently in [facility] for an NSTEMI. Patient does not seem like she is in florid heart failure as her BNP is 3500 and with previous value noted at 19,800. Echo in May 21 shows mild LAE, TR, RVSP 45, mild , EF 65%. * Patient had a stress test 06/23 which is reportedly normal with no signs of ischemia * She was offered a cardiac cath given her cardiac history, but at this point she refuses. * She will be managed medically. * Continue Aspirin and Plavix * Will add Imdur 30mg and Ranexa 500mg to home medications to optimize medical therapy. * Troponins have been negative x3 * Her EKG changes are suggestive of demand ischemia. * Continue atorvatatin * continue home metoprolol * appreciate cardio recs * Patient stable to be down graded to general medicine floor History of Diabetes: * Insulin sliding scale * Accucheks COPD: * TRC * continue home inhalers as needed. Anxiety: * Was evaluated by psychiatry today. * Recommend Lorazepam 0.5 mg PO up to 3X/day, as needed, for panic or severe anxiety. * Gabapentin 100 mg PO 3X/day for anxiety. Can be gradually titrated up. History of Hypertension: * Con't Amlodipine and Furosemide. Diet: Diabetic diet DVT Prophylaxis: SC Heparin Code: Full Code Problem List: 1. Shortness of breath Pain Ratin Tomorrow's Labs & Rationales: CBC, BEP Plan DVT/Prophylaxis: pharmacological
[2017-06-25 08:00] VITALS: BP 170/70
--- NOTE | 2017-06-25 08:31 | PN- Cardiology ---
Subjective Subjective: Patient sitting out of bed in a chair. She is off telemetry. She is awaiting a general medical bed. She appears somewhat stressed but comfortable. Objective Vital Signs and I&Os Vital Signs Date Time Temp Pulse Resp B/P B/P Pulse O2 O2 Flow FiO2 Mean Ox Delivery Rate 06/25 0000 93 Nasal 2.0L Cannula 06/25 0000 97.7 82 20 140/80 93 Nasal 2.0L Cannula 06/24 2222 98.2 66 16 160/70 06/24 1654 98.2 82 18 140/60 06/24 1600 95 Room Air Room Air 06/24 1600 98.2 82 18 140/60 95 Room Air Room Air 06/24 1200 99 Room Air Room Air 06/24 1028 98.4 81 16 155/60 06/24 1026 98.4 81 16 155/60 Intake & Output 06/25 1600 06/25 0800 06/25 0000 06/24 1600 06/24 0800 06/24 0000 Intake Total 100 400 317 68 0 Output Total 500 Balance 100 -100 317 68 0 Intake, IV 147 68 Intake, Oral 100 400 170 0 Output, Urine 500 Patient 155 lb 155 lb Weight Physical Exam: On general exam she appeared comfortable. Occasionally she would have a sighing respiration. Head normocephalic atraumatic Eyes sclera anicteric conjunctiva showed no pallor extraocular muscles were normal Neck no jugular venous distention no thyroid masses no palpable nodes Chest lungs were clear bilaterally Heart regular rhythm with a 1 to 2/6 systolic murmur Abdomen soft no organomegaly Extremities no cyanosis or pedal edema. Extent neurological no gross motor or sensory deficits. Current Medications: Current Medications Sig/Med Start time Last Medication Dose Route Stop Time Status Admin Alprazolam 0.5 MG BID PRN 06/24 1330 DC PO 07/01 1329 Alprazolam 0.25 MG AT BEDTIME NEED.. 06/24 0515 DC PO 07/01 0514 Amlodipine Besylate 2.5 MG DAILY 06/24 1000 DC 06/24 PO 1028 Aspirin Buffered 81 MG DAILY 06/24 1000 AC 06/24 PO 1026 Atorvastatin Calcium 40 MG 1700 06/24 1700 AC 06/24 PO 1654 Budesonide/ 2 PUF BID 06/24 1500 AC 06/24 Formoterol Fumarate INH 2222 Clopidogrel Bisulfate 75 MG DAILY 06/24 1000 AC 06/24 PO 1026 Ezetimibe 10 MG DAILY 06/25 1000 AC PO Famotidine 20 MG DAILY 06/25 1000 AC PO Folic Acid 1 MG DAILY 06/25 1000 AC PO Furosemide 40 MG BID 06/24 2200 AC 06/24 PO 2221 Heparin Sodium 5,000 UNIT Q8 06/24 2200 AC 06/25 (Porcine) SC 0537 Heparin Sodium 25,000 UNIT Q24H 06/24 0015 DC 06/24 (Porcine) IV 0054 Sodium Chloride 500 ML Insulin Aspart 0 TIDAC 06/24 1200 AC SC Insulin Detemir 15 UNITS DAILY 06/25 1000 DC SC Insulin Detemir 7 UNITS BID 06/25 1000 AC SC Insulin Human Regular 0 Q6 06/24 0600 DC 06/24 SC 0817 Isosorbide 30 MG DAILY 06/24 1501 AC 06/24 Mononitrate PO 1654 Lorazepam 0.5 MG ONCE ONE 06/24 1915 DC 06/24 IV 06/24 1916 1912 Lorazepam 0.5 MG BID PRN 06/24 1730 AC 06/24 PO 07/01 1729 1848 Lorazepam 0.5 MG ONCE ONE 06/24 1345 DC 06/24 IV 06/24 1346 1340 Metoprolol Succinate 25 MG DAILY 06/25 1000 UNVr PO Metoprolol Tartrate 25 MG BID 06/24 1000 DC 06/24 PO 2222 Nitroglycerin 2 GM Q6 06/24 0048 DC 06/24 TOP 0630 Thiamine HCl 100 MG DAILY 06/25 1000 AC PO Tiotropium [place] 1 PUF DAILY 06/24 1500 AC 06/24 INH 1654 Results Last 48 Hrs of Labs/Mics: Laboratory Tests 06/25/17 0410: Anion Gap 14, Estimated GFR 35 L, Glucose 299 H, Calcium 9.0, Phosphorus 4.6 H, Magnesium 2.1, Total Bilirubin 0.4, AST 31, ALT 46, Albumin 3.1 L, CBC w Diff NO MAN DIFF REQ, RBC 3.72 L, MCV 86.3, MCH 28.5, MCHC 33.0, RDW 16.9 H, MPV 8.9, Gran % 61.2, Lymphocytes % 23.2, Monocytes % 10.0 H, Eosinophils % 4.7 , Basophils % 0.9, Absolute Granulocytes 3.6, Absolute Lymphocytes 1.4, Absolute Monocytes 0.6, Absolute Eosinophils 0.3, Absolute Basophils 0.1 06/24/17 1500: APTT Cancelled 06/24/17 0630: Troponin I Cancelled 06/24/17 0630: Anion Gap 14, Estimated GFR 30 L, BUN/Creatinine Ratio 20.0, Troponin I 0.05, TSH 3.770, APTT 55 H, CBC w Diff NO MAN DIFF REQ, RBC 3.71 L, MCV 86.2, MCH 28.3, MCHC 32.8 L, RDW 17.2 H, MPV 9.4, Gran % 64.4, Lymphocytes % 23.2, Monocytes % 7.8, Eosinophils % 4.1, Basophils % 0.5, Absolute Granulocytes 5.0, Absolute Lymphocytes 1.8, Absolute Monocytes 0.6, Absolute Eosinophils 0.3, Absolute Basophils 0 06/24/17 0027: Troponin I 0.02 06/23/17 2115: Anion Gap 14, Estimated GFR 32 L, BUN/Creatinine Ratio 20.0, Glucose 65, Calcium 10.0, Total Bilirubin 0.4, AST 49 H, ALT 42, Alkaline Phosphatase 100, Troponin I 0.02, Dje-Z-Ybfozihgqks Pept 3580 H, Total Protein 6.8, Albumin 3.9, Globulin 2.9, Albumin/Globulin Ratio 1.3, CBC w Diff NO MAN DIFF REQ, RBC 4.21, MCV 85.8, MCH 27.8, RDW 17.4 H, MPV 8.6, Gran % 58.0, Lymphocytes % 24.9, Monocytes % 12.2 H, Eosinophils % 4.3, Basophils % 0.6, Absolute Granulocytes 4.5, Absolute Lymphocytes 1.9, Absolute Monocytes 0.9 H, Absolute Eosinophils 0.3, Absolute Basophils 0, PUBS MCHC 32.4 L, Urine Color YEL, Urine Clarity CLEAR, Urine pH 7.0, Ur Specific [place] 1.010, Urine Protein 30 H, Urine Ketones NEG, Urine Nitrite NEG, Urine Bilirubin NEG, Urine Urobilinogen 0.2, Ur Leukocyte Esterase NEG, Ur Microscopic SEDIMENT EXAMINED, Urine RBC RARE, Urine Bacteria FEW H, Urine Hemoglobin TRACE-INTACT, Urine Glucose NEG Assessment/Plan Assessment/Plan Summary this 66-year-old female has the following problems 1. Chest discomfort with EKG changes and negative troponins are likely due to demand ischemia in the setting of anxiety attack 2. Chronic anxiety 3. Coronary artery disease with history of remote PCI 4. COPD/sleep apnea 5. Diabetes 6. HTN X He continues to have chest discomfort intermittently only on questioning otherwise she's quite comfortable sitting in a chair. She does have risk factors of coronary artery disease. Troponins have been serially negative. Nuclear stress test showed normal perfusion. Echocardiogram showed normal left ventricular systolic function. She has been daughter has supply demand ischemia with negative troponins. She also could have syndrome X. Suggest Ranexa 500 mg twice a day. May need to increase amlodipine to 5 mg a day for better blood pressure control. General med transfer is okay. Continue telemetry? No
--- NOTE | 2017-06-25 10:49 | PN- CRCU ---
Subjective HPI/Critical Care Issues: Stable Still anxious On ra 97 percent Objective Current Medications: Current Medications Sig/Med Start time Last Medication Dose Route Stop Time Status Admin Alprazolam 0.5 MG BID PRN 06/24 1330 DC PO 07/01 1329 Alprazolam 0.25 MG AT BEDTIME NEED.. 06/24 0515 DC PO 07/01 0514 Amlodipine Besylate 2.5 MG DAILY 06/24 1000 DC 06/24 PO 1028 Aspirin Buffered 81 MG DAILY 06/24 1000 AC 06/25 PO 0817 Atorvastatin Calcium 40 MG 1700 06/24 1700 AC 06/24 PO 1654 Budesonide/ 2 PUF BID 06/24 1500 AC 06/25 Formoterol Fumarate INH 0819 Clopidogrel Bisulfate 75 MG DAILY 06/24 1000 AC 06/25 PO 0818 Ezetimibe 10 MG DAILY 06/25 1000 AC 06/25 PO 0818 Famotidine 20 MG DAILY 06/25 1000 AC 06/25 PO 0818 Folic Acid 1 MG DAILY 06/25 1000 AC 06/25 PO 0817 Furosemide 40 MG BID 06/24 2200 AC 06/25 PO 0818 Heparin Sodium 5,000 UNIT Q8 06/24 2200 AC 06/25 (Porcine) SC 0537 Heparin Sodium 25,000 UNIT Q24H 06/24 0015 DC 06/24 (Porcine) IV 0054 Sodium Chloride 500 ML Insulin Aspart 0 TIDAC 06/24 1200 AC 06/25 SC 0817 Insulin Detemir 15 UNITS DAILY 06/25 1000 DC SC Insulin Detemir 7 UNITS BID 06/25 1000 AC SC Insulin Human Regular 0 Q6 06/24 0600 DC 06/24 SC 0817 Isosorbide 30 MG DAILY 06/24 1501 AC 06/25 Mononitrate PO 0817 Lorazepam 0.5 MG ONCE ONE 06/24 1915 DC 06/24 IV 06/24 1916 1912 Lorazepam 0.5 MG BID PRN 06/24 1730 AC 06/25 PO 07/01 1729 0818 Lorazepam 0.5 MG ONCE ONE 06/24 1345 DC 06/24 IV 06/24 1346 1340 Metoprolol Succinate 25 MG DAILY 06/25 1000 AC PO Metoprolol Tartrate 25 MG BID 06/24 1000 DC 06/24 PO 2222 Nitroglycerin 2 GM Q6 06/24 0048 DC 06/24 TOP 0630 Ranolazine 500 MG BID 06/25 1000 AC PO Thiamine HCl 100 MG DAILY 06/25 1000 AC 06/25 PO 0818 Tiotropium [place] 1 PUF DAILY 06/24 1500 AC 06/25 INH 0819 Vital Signs & I&O Last 24 Hrs of Vitals and I&O: Vital Signs Date Time Temp Pulse Resp B/P B/P Pulse O2 O2 Flow FiO2 Mean Ox Delivery Rate 06/25 0817 88 170/70 06/25 0800 Room Air 06/25 0800 98.3 88 18 170/70 97 Room Air 06/25 0000 93 Nasal 2.0L Cannula 06/25 0000 97.7 82 20 140/80 93 Nasal 2.0L Cannula 06/24 2222 98.2 66 16 160/70 06/24 1654 98.2 82 18 140/60 06/24 1600 95 Room Air Room Air 06/24 1600 98.2 82 18 140/60 95 Room Air Room Air 06/24 1200 99 Room Air Room Air Intake & Output 06/25 1600 06/25 0800 06/25 0000 Intake Total 100 400 Output Total 500 Balance 100 -100 Intake, Oral 100 400 Output, Urine 500 Impression/Plan Impression/Plan Impression/Plan: Physical exam: HEENT: Pupils equal and reactive to light bilaterally, extraocular movements intact. Neck: No JVD CV: Patient has normal S1 and S2 with 2 different murmurs. One is clearly systolic heard best at the right upper sternal border. The second murmur is shorter and perhaps diastolic at left sternal border and mitral area. No S3 appreciated. Pulmonary: Clear to auscultation bilaterally Abdomen: No tenderness, bowel sounds present 4. Lower extremity: 2+ edema in bilateral lower extremities. 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, previous history of significant ischemic heart disease with previous stents in the early , hypothyroidism on supplementation, chronic kidney disease stage III, significant rheumatoid arthritis on methotrexate before (seems to be off now), previous pancytopenia and her methotrexate had been held, obstructive sleep apnea not on cpap regularly, previous history of COPD not on any oxygen, previous multiple admissions in the past few months to and to [facility], and [facility], fracture fibula,previous history of delirium toxic encephalopathy and hyperkalemia and transaminitis, previous workup negative for venous thromboembolism, previous narcotic use with * Resolved Chest discomfort, with prob ekg changes (recent ekg not available), No evidence of active ACS, and her symptoms are Compounded by anxiety and prob panic attack * Recent Non-ST segment elevation UT with elevated troponin in dec, with previous history of multiple stents, T-wave inversions in the anterior and lateral leads in the past, pt s/p stress test yesterday and per cardio she had no active ischemia and her EF is normal * Chronic kidney disease with diabetic nephropathy, stable * RA with previous methrotrexate use and now has been held * Mild to moderate COPD with no evidence of COPD exacerbation, pna or sig chf * Obstructive sleep apnea on CPAP, not using it regularly * Significant diabetes with complications including neuropathy, nephropathy, with previous hypoglycemia, now stable * Hypothyroidism on appropriate supplementation * Chronic constipation * Hypertension history, hyperlipidemia, previous GERD, neuropathy appears to be stable * Significant anxiety and depression due to multiple medical issues and chronic pain RECOMMENDATION * Cardiology evaluatation reviewed and pt can be dcd home * COnt all meds as ordered with new sugg per cardio * Avoid narcotics CTPMP checked no narcotics since 04/17 * Use Xanax only as needed, and psych eval may be needed * Tylenol for pain and avoid narcotics * Spiriva one puff daily, prn proair, * PSych eval to be done Ok to dc with new meds Consult Acknowledgment - Thank you for your consult request.
--- NOTE | 2017-06-25 12:30 | Cons- Psychiatry ---
Psychiatric Consult Date of Consult: 06/25/17 Reason for Consult: Anxiety-panic attacks History of Present Illness: 66 F with history of multiple presentations to [facility] for broken fibulla , Hx toxic encephalopathy, hyperkalemia and transaminitis, non-ST MT in May, was BIBA for acute onset of SOB and chest tightness. She has been treated in the past for ischemic heart disease with stents, diabetes with neuropathy and retinopathy, hypothyroidism on supplementation, CKD Stg III, rheumatoid arthritis on methotraxate, KENN on CPAP, COPD not on oxygen. She has been treated with alprazolam for at least a year, per CTP. she has a long history of smoking. She reports a social glass of wine, which she has not had in months. She has no history of psychiatric diagnosis or treatment, other than alprazolam from her PCP. She lives at home with her supportive and daughter. Allergies: Coded Allergies: morphine (UNKNOWN 05/20/17) Current Medications: Current Medications Sig/Med Start time Last Medication Dose Route Stop Time Status Admin Alprazolam 0.5 MG BID PRN 06/24 1330 DC PO 07/01 1329 Alprazolam 0.25 MG AT BEDTIME NEED.. 06/24 0515 DC PO 07/01 0514 Amlodipine Besylate 2.5 MG DAILY 06/24 1000 DC 06/24 PO 1028 Aspirin Buffered 81 MG DAILY 06/24 1000 AC 06/25 PO 0817 Atorvastatin Calcium 40 MG 1700 06/24 1700 AC 06/24 PO 1654 Budesonide/ 2 PUF BID 06/24 1500 AC 06/25 Formoterol Fumarate INH 0819 Clopidogrel Bisulfate 75 MG DAILY 06/24 1000 AC 06/25 PO 0818 Ezetimibe 10 MG DAILY 06/25 1000 AC 06/25 PO 0818 Famotidine 20 MG DAILY 06/25 1000 AC 06/25 PO 0818 Folic Acid 1 MG DAILY 06/25 1000 AC 06/25 PO 0817 Furosemide 40 MG BID 06/24 2200 AC 06/25 PO 0818 Gabapentin 100 MG Q8 06/25 1145 UNVr PO Heparin Sodium 5,000 UNIT Q8 06/24 2200 AC 06/25 (Porcine) SC 0537 Heparin Sodium 25,000 UNIT Q24H 06/24 0015 DC 06/24 (Porcine) IV 0054 Sodium Chloride 500 ML Insulin Aspart 0 TIDAC 06/24 1200 AC 06/25 SC 0817 Insulin Detemir 20 UNITS AT BEDTIME 06/25 2200 AC SC Insulin Detemir 15 UNITS DAILY 06/25 1000 DC SC Insulin Detemir 7 UNITS BID 06/25 1000 DC 06/25 SC 1044 Isosorbide 30 MG DAILY 06/24 1501 AC 06/25 Mononitrate PO 0817 Lorazepam 0.5 MG ONCE ONE 06/24 1915 DC 06/24 IV 06/24 191 1912 Lorazepam 0.5 MG BID PRN 06/24 1730 AC 06/25 PO 07/01 1729 0818 Lorazepam 0.5 MG ONCE ONE 06/24 1345 DC 06/24 IV 06/24 1346 1340 Metoprolol Succinate 25 MG DAILY 06/25 1000 AC 06/25 PO 1044 Metoprolol Tartrate 25 MG BID 06/24 1000 DC 06/24 PO 2222 Nitroglycerin 2 GM Q6 06/24 0048 DC 06/24 TOP 0630 Ranolazine 500 MG BID 06/25 1000 AC 06/25 PO 1045 Thiamine HCl 100 MG DAILY 06/25 1000 AC 06/25 PO 0818 Tiotropium [place] 1 PUF DAILY 06/24 1500 AC 06/25 INH 0819 Past History Past Medical History Neurological: NONE Cardiovascular: hypertension, HEART FAILURE Gastrointestinal: colitis, GI Bleed Renal: CHRONIC KIDNEY DISEASE Psychiatric: Denies history Endocrine: diabetes Past Surgical History Surgical History: non-contributory Psychosocial History Strengths/Capabilities: Supportive family Physical Limitations (Interventions): Ambulation difficulty reported by the patient since fibulla fracture in April Psychiatric Treatment History Psych Treatment Psychiatric Treatment No (denies) Diagnosis: Depression, NOS, with anxious distress, severe R/O dementia, NOS Risk Factors: age (under 24/over 65) Substance Use/Abuse History Drug Use/Abuse Substances Used/Abused No Substance Abuse Treatment Substance Abuse Treatment Past Substance Abuse [place] No Assessment/Plan Mental Status Orientation: Person, Place, Situation (Off by one day.) Affect: Anxious, Depressed, Hopeless ("I did not give up on life."), Labile Speech: WNL Neuro-vegetative: Sleep Disturbance Mental Status Exam: 66 y.o. female, appearing older than her stated age, lying in bed. She exhibits tongue-rolling throughout the interview, which she states is related to missing teeth. She is oriented to person, place, month, year, but off by one day and date. She denies VH, but reports that she has had an event several nights ago when she heard a voice calling her name, is unsure of the gender; this had occured once before, but the [facility]. She reports that she sleeps well at home, taking alprazolam to help her sleep. she endorses depression, hopelessness ("sometimes, but I have not given up on life. I want to live."), denies helplessness and worthlessness. She denies SI/HI, and denies history of suicide attempt. She denies any diagnosis or treatment for psychiatric or substance use. She reports an occasional social glass of wine, which hshe has not had in months. She reports her anxiety and panic have worsened since 06/22/17, but is not sure why. She reports that she never had anxiety, but then agrees that the alpraxolam has been prescribed for that problem, suggesting some lapses in memory. Lab Results: Laboratory Tests 06/25 06/24 0410 1500 Chemistry Sodium (137 - 145 mmol/L) 143 Potassium (3.5 - 5.1 mmol/L) 4.3 Chloride (98 - 107 mmol/L) 102 Carbon Dioxide (22 - 30 mmol/L) 27 Anion Gap (5 - 16) 14 BUN (7 - 17 mg/dL) 32 H Creatinine (0.5 - 1.0 mg/dL) 1.5 H Estimated GFR (>60 ml/min) 35 L Glucose (65 - 99 mg/dL) 299 H Calcium (8.4 - 10.2 mg/dL) 9.0 Phosphorus (2.5 - 4.5 mg/dL) 4.6 H Magnesium (1.6 - 2.3 mg/dL) 2.1 Total Bilirubin (0.2 - 1.3 mg/dL) 0.4 AST (14 - 36 U/L) 31 ALT (9 - 52 U/L) 46 Albumin (3.5 - 5.0 g/dL) 3.1 L Coagulation APTT Cancelled Hematology CBC w Diff NO MAN DIFF REQ WBC (4.8 - 10.8 /CUMM) 5.9 RBC (4.20 - 5.40 /CUMM) 3.72 L Hgb (12.0 - 16.0 G/DL) 10.6 L Hct (37 - 47 %) 32.1 L MCV (81.0 - 99.0 FL) 86.3 MCH (27.0 - 31.0 PG) 28.5 MCHC (33.0 - 37.0 G/DL) 33.0 RDW (11.5 - 14.5 %) 16.9 H Plt Count (130 - 400 /CUMM) 223 MPV (7.4 - 10.4 FL) 8.9 Gran % (42.2 - 75.2 %) 61.2 Lymphocytes % (20.5 - 51.1 %) 23.2 Monocytes % (1.7 - 9.3 %) 10.0 H Eosinophils % (0 - 5 %) 4.7 Basophils % (0.0 - 2.0 %) 0.9 Absolute Granulocytes (1.4 - 6.5 /CUMM) 3.6 Absolute Lymphocytes (1.2 - 3.4 /CUMM) 1.4 Absolute Monocytes (0.10 - 0.60 /CUMM) 0.6 Absolute Eosinophils (0.0 - 0.7 /CUMM) 0.3 Absolute Basophils (0.0 - 0.2 /CUMM) 0.1 Diffential Diagnosis: Depression, NOS, with anxious distress, severe R/O dementia, NOS Impression: The patient presents with anxiety that she believes is related to cardiac and respiratory problems, which are not thought to be the cause, at this time. Her severe anxiety and panic are likely the result of her worry and fear about her medical problems. She needs to come to [facility] for further evaluation and management. There is also a possibility that a contributory factor may be a new onset dementia, however, the patient reports that the immediate problem became markedly worse last 06/22/17. Provisional Treatment Plan: 1. Lorazepam 0.5 mg PO up to 3X/day, as needed, for panic or severe anxiety. This medication poses an increased risk for fall, and the patient should be monitored at home when she takes this. This is intended as a rescue medication, only, and should not be taken as a scheduled medication. 2. Gabapentin 100 mg PO 3X/day, off-label for anxiety. This may be advanced to 300 mg 3X/day, if tolerated. a. The patient had previously been on much higher doses for neuropathy, but is now on Lyrica. b. The spouse has been giving her his gabapentin 400 mg. Please reinforce teaching to not give her this unpescribed. c. Reinforce teaching that she should not take alprazolam at home with lorazepam. Spouse, Nickolas, verbalizes understanding. d. Caution with patient's with renal impairment, due to majority of excretion through kidneys. 3. The patient has an intake appointment at [facility] on Thrusday, 07/16/17 at 1345, at [address], [place], . A card with this information was given to the spouse. 4. Avoid delirium triggers, including constipation, which has been a problem for her. Thank you for this consult.
[2017-06-25] MEDS ORDERED: GABAPENTIN100 M2 PO (14:49)
[2017-06-25] MEDS ORDERED: RANEXA500 M1 PO (14:49)
[2017-06-25] MEDS ORDERED: LORAZEPAM0.5 M1 PO (14:49)
[2017-06-25 14:50] VITALS: BP 186/60
[2017-06-25 16:00] VITALS: BP 174/62
[2017-06-25 23:06] VITALS: BP 178/50
[2017-06-26 06:54] VITALS: BP 124/48; BP 176/54
--- NOTE | 2017-06-26 07:39 | PN- Housestaff ---
Subjective Follow-up For: Chest pain ruled out ACS Hypertension Severe anxiety Subjective: Patient was seen and examined this morning. She was transferred out of ICU where she was initially admitted for substernal chest pain and to rule out ACS. She remained afebrile. Her blood pressure was on higher side and his Imdur was increased. If she remained stable is a possible discharge on weekend. Review of Systems Constitutional: Denies: chills, diaphoresis. Cardiovascular: Denies: chest pain, edema. Respiratory: Denies: hemoptysis, orthopnea. Gastrointestinal: Denies: bloating, distention. Genitourinary: Denies: discharge, hematuria. Musculoskeletal: Reports: see HPI. Objective Last 24 Hrs of Vital Signs/I&O Vital Signs Date Time Temp Pulse Resp B/P B/P Pulse O2 O2 Flow FiO2 Mean Ox Delivery Rate 06/26 0828 80 176/54 06/26 0927 80 176/54 06/26 0926 80 176/54 06/26 0654 97.8 80 20 176/54 95 06/26 0654 97.8 80 20 176/54 95 06/25 2306 98.6 84 20 178/50 94 Room Air 06/25 2201 90 172/62 06/25 1743 174/62 06/25 1642 174/62 06/25 1600 99.0 99 18 174/62 92 Intake & Output 06/26 1600 06/26 0800 06/26 0000 Intake Total 600 480 240 Output Total Balance 600 480 240 Intake, Oral 600 480 240 Number 0 0 Bowel Movements Patient 155 lb Weight Physical Exam General Appearance: Alert, Oriented X3, Cooperative, No Acute Distress Cardiovascular: Regular Rate, Normal S1, Normal S2, No Murmurs Lungs: Normal Air Movement Abdomen: Soft, No Tenderness Current Medications: Current Medications Sig/Med Start time Last Medication Dose Route Stop Time Status Admin Acetaminophen 650 MG Q8 PRN 06/26 1130 AC 06/26 PO 1216 Amlodipine Besylate 5 MG DAILY 06/26 1000 AC 06/25 PO 1642 Amlodipine Besylate 5 MG ONCE ONE 06/25 1645 DC PO 06/25 1646 Aspirin Buffered 81 MG DAILY 06/24 1000 AC 06/26 PO 0922 Atorvastatin Calcium 40 MG 1700 06/24 1700 AC 06/25 PO 1645 Budesonide/ 2 PUF BID 06/24 1500 AC 06/26 Formoterol Fumarate INH 0929 Clopidogrel Bisulfate 75 MG DAILY 06/24 1000 AC 06/26 PO 0923 Ezetimibe 10 MG DAILY 06/25 1000 AC 06/26 PO 0926 Famotidine 20 MG DAILY 06/25 1000 AC 06/26 PO 0923 Folic Acid 1 MG DAILY 06/25 1000 AC 06/26 PO 0923 Furosemide 40 MG BID 06/24 2200 AC 06/26 PO 0923 Gabapentin 100 MG Q8 06/25 1145 AC 06/26 PO 1335 Heparin Sodium 5,000 UNIT Q8 06/24 2200 AC 06/26 (Porcine) SC 1334 Insulin Aspart 0 TIDAC 06/24 1200 AC 06/26 SC 1245 Insulin Detemir 20 UNITS AT BEDTIME 06/25 2200 AC 06/25 SC 2201 Isosorbide 60 MG DAILY 06/27 1000 AC Mononitrate PO Isosorbide 30 MG ONCE ONE 06/26 1445 DC Mononitrate PO 06/26 1446 Isosorbide 30 MG DAILY 06/24 1501 DC 06/26 Mononitrate PO 0928 Lorazepam 0.5 MG BID PRN 06/24 1730 AC 06/26 PO 07/01 1729 0929 Metoprolol Succinate 25 MG DAILY 06/25 1000 AC 06/26 PO 0927 Ranolazine 500 MG BID 06/25 1000 AC 06/26 PO 0926 Thiamine HCl 100 MG DAILY 06/25 1000 AC 06/26 PO 0926 Tiotropium [place] 1 PUF DAILY 06/24 1500 AC 06/26 INH 0929 Last 24 Hrs of Lab/Kevin Results Last 24 Hrs of Labs/Mics: Laboratory Tests 06/26/17 0734: Anion Gap 11, Estimated GFR 32 L, BUN/Creatinine Ratio 19.4, CBC w Diff NO MAN DIFF REQ, RBC 3.95 L, MCV 86.5, MCH 28.5, MCHC 33.0, RDW 16.0 H, MPV 8.9, Gran % 61.9, Lymphocytes % 23.1, Monocytes % 9.8 H, Eosinophils % 4.6, Basophils % 0.6, Absolute Granulocytes 4.3, Absolute Lymphocytes 1.6, Absolute Monocytes 0.7 H, Absolute Eosinophils 0.3, Absolute Basophils 0 Assessment/Plan Assessment: 66-year-old female with past medical history of HTN, IDDM, CAD s/p 3 stents, CHF , and COPD, who was initially brought in for shortness of breath due to anxiety. However in ED she developed typical anginal chest pain and subsequent EKG changes of ST depressions in all leads. Given EKG changes and chest pain in this patient with significant cardiac history there was concern for unstable angina. She has a LINDA score of 6 with 41% risk of , UT or urgent revascularization by day 14. Initially she was kept in ICU and was transferred to general medical floor after stabilization. Unstable Angina: Patient had typical anginal chest pain that did not remit at rest though she does mention improvement with SL Nitroglycerin. She has significant history of CAD and was seen recently in [facility] for an NSTEMI. Patient does not seem like she is in florid heart failure as her BNP is 3500 and with previous value noted at 19,800. Echo in May 21 shows mild LAE, TR, RVSP 45, mild , EF 65%. * Patient had a stress test 06/23 which is reportedly normal with no signs of ischemia * She was offered a cardiac cath given her cardiac history, but at this point she refuses. * She will be managed medically. * Continue Aspirin and Plavix * Will add Imdur 60mg and Ranexa 500mg to home medications to optimize medical therapy. * Troponins have been negative x3 * Her EKG changes are suggestive of demand ischemia. * Continue atorvatatin * continue home metoprolol * appreciate cardio recs History of Diabetes: * Insulin sliding scale * Accucheks COPD: * TRC * continue home inhalers as needed. Anxiety: * Was evaluated by psychiatry today. * Recommend Lorazepam 0.5 mg PO up to 3X/day, as needed, for panic or severe anxiety. * Gabapentin 100 mg PO 3X/day for anxiety. Can be gradually titrated up. History of Hypertension: * Con't Amlodipine and Furosemide. Problem List: 1. Anxiety Pain Ratin Pain Location: Headache Pain Goal: Remain pain free Pain Plan: Tylenol Tomorrow's Labs & Rationales: Basic electrolyte panel
[2017-06-26 08:49] LABS: ABSOLUTE BASOPHIL COUNT 0 /CUMM (0.0-0.2); ABSOLUTE EOSINOPHIL COUNT 0.3 /CUMM (0.0-0.7); ABSOLUTE GRANULOCYTE CT 4.3 /CUMM (1.4-6.5); ABSOLUTE LYMPH COUNT 1.6 /CUMM (1.2-3.4); ABSOLUTE MONOCYTE COUNT 0.7 /CUMM (0.10-0.60); BASOPHIL % 0.6 % (0.0-2.0); EOSINOPHIL % 4.6 % (0-5); GRANULOCYTE % 61.9 % (42.2-75.2); HEMATOCRIT 34.2 % (37-47); MEAN CORPUSCULAR HGB 28.5 PG (27.0-31.0); MEAN CORPUSCULAR VOLUME 86.5 FL (81.0-99.0); MEAN PLATELET VOLUME 8.9 FL (7.4-10.4); PLATELET COUNT 201 /CUMM (130-400); RED BLOOD CELL CT 3.95 /CUMM (4.20-5.40); WHITE BLOOD CELL COUNT 6.9 /CUMM (4.8-10.8)
--- NOTE | 2017-06-26 12:31 | PN- Cardiology ---
Subjective Subjective: Resting comfortably. No shortness of breath. Objective Vital Signs and I&Os Vital Signs Date Time Temp Pulse Resp B/P B/P Pulse O2 O2 Flow FiO2 Mean Ox Delivery Rate 06/26 0928 80 176/54 06/26 0927 80 176/54 06/26 0926 80 176/54 06/26 0654 97.8 80 20 176/54 95 06/26 0654 97.8 80 20 176/54 95 06/25 2306 98.6 84 20 178/50 94 Room Air 06/25 2201 90 172/62 06/25 1743 174/62 06/25 1642 174/62 06/25 1600 99.0 99 18 174/62 92 06/25 1450 96 186/60 97 Room Air 06/25 1431 96 186/60 Intake & Output 06/26 1600 06/26 0800 06/26 0000 06/25 1600 06/25 0800 06/25 0000 Intake Total 480 240 800 100 400 Output Total 500 Balance 480 240 800 100 -100 Intake, Oral 480 240 800 100 400 Number 0 Bowel Movements Output, Urine 500 Physical Exam: General: no apparent distress. Alert. Eyes: No obvious scleral icterus. HEENT: No jugular venous distention or abnormal jugular venous pulsations. Cardiovascular: Normal intensity S1/S2. One out of 6 systolic murmur Respiratory: Lungs clear to auscultation bilaterally. Abdomen: Soft, nontender with no guarding or rebound tenderness. Musculoskeletal: No clubbing or cyanosis noted Skin: Warm Neurologic: No gross focal deficits noted. Lymph: No gross lymphadenopathy. Current Medications: Current Medications Sig/Med Start time Last Medication Dose Route Stop Time Status Admin Acetaminophen 650 MG Q8 PRN 06/26 1130 AC 06/26 PO 1216 Amlodipine Besylate 5 MG DAILY 06/26 1000 AC 06/25 PO 1642 Amlodipine Besylate 5 MG ONCE ONE 06/25 1645 DC PO 06/25 1646 Amlodipine Besylate 2.5 MG ONCE ONE 06/25 1430 DC 06/25 PO 06/25 1431 1431 Aspirin Buffered 81 MG DAILY 06/24 1000 AC 06/26 PO 0922 Atorvastatin Calcium 40 MG 1700 06/24 1700 AC 06/25 PO 1645 Budesonide/ 2 PUF BID 06/24 1500 AC 06/26 Formoterol Fumarate INH 0929 Clopidogrel Bisulfate 75 MG DAILY 06/24 1000 AC 06/26 PO 0923 Ezetimibe 10 MG DAILY 06/25 1000 AC 06/26 PO 0926 Famotidine 20 MG DAILY 06/25 1000 AC 06/26 PO 0923 Folic Acid 1 MG DAILY 06/25 1000 AC 06/26 PO 0923 Furosemide 40 MG BID 06/24 2200 AC 06/26 PO 0923 Gabapentin 100 MG Q8 06/25 1145 AC 06/26 PO 0535 Heparin Sodium 5,000 UNIT Q8 06/24 2200 AC 06/26 (Porcine) SC 0534 Insulin Aspart 0 TIDAC 06/24 1200 AC 06/26 SC 0800 Insulin Detemir 20 UNITS AT BEDTIME 06/25 2200 AC 06/25 SC 2201 Isosorbide 30 MG DAILY 06/24 1501 AC 06/26 Mononitrate PO 0928 Lorazepam 0.5 MG ONCE ONE 06/25 1500 DC 06/25 IV 06/25 1501 1457 Lorazepam 0.5 MG BID PRN 06/24 1730 AC 06/26 PO 07/01 1729 0929 Metoprolol Succinate 25 MG DAILY 06/25 1000 AC 06/26 PO 0927 Ranolazine 500 MG BID 06/25 1000 AC 06/26 PO 0926 Thiamine HCl 100 MG DAILY 06/25 1000 AC 06/26 PO 0926 Tiotropium [place] 1 PUF DAILY 06/24 1500 AC 06/26 INH 0929 Results Last 48 Hrs of Labs/Mics: Laboratory Tests 06/26/17 0734: Anion Gap 11, Estimated GFR 32 L, BUN/Creatinine Ratio 19.4, CBC w Diff NO MAN DIFF REQ, RBC 3.95 L, MCV 86.5, MCH 28.5, MCHC 33.0, RDW 16.0 H, MPV 8.9, Gran % 61.9, Lymphocytes % 23.1, Monocytes % 9.8 H, Eosinophils % 4.6, Basophils % 0.6, Absolute Granulocytes 4.3, Absolute Lymphocytes 1.6, Absolute Monocytes 0.7 H, Absolute Eosinophils 0.3, Absolute Basophils 0 06/25/17 0410: Anion Gap 14, Estimated GFR 35 L, Glucose 299 H, Calcium 9.0, Phosphorus 4.6 H, Magnesium 2.1, Total Bilirubin 0.4, AST 31, ALT 46, Albumin 3.1 L, CBC w Diff NO MAN DIFF REQ, RBC 3.72 L, MCV 86.3, MCH 28.5, MCHC 33.0, RDW 16.9 H, MPV 8.9, Gran % 61.2, Lymphocytes % 23.2, Monocytes % 10.0 H, Eosinophils % 4.7 , Basophils % 0.9, Absolute Granulocytes 3.6, Absolute Lymphocytes 1.4, Absolute Monocytes 0.6, Absolute Eosinophils 0.3, Absolute Basophils 0.1 06/24/17 1500: APTT Cancelled Recent Imaging Studies: Not on telemetry Assessment/Plan Assessment/Plan 1. Chest discomfort with EKG changes and negative troponins are likely due to demand ischemia in the setting of anxiety attack; recent nuclear stress test with normal perfusion 2. Chronic anxiety 3. Coronary artery disease with history of remote PCI 4. COPD/sleep apnea 5. Diabetes 6. HTN The patient has declined consideration for cardiac catheterization at this time given her recently normal stress test and prefers medical therapy for angina. Continue on the Ranexa and given the elevated blood pressure would increase the Imdur to 60 mg by mouth daily. Additional cardiac medication titration can be done as an outpatient; she should follow-up with us within one week of discharge. Zac Bishop MD [facility] Continue telemetry? No
--- NOTE | 2017-06-26 14:10 | PN- Att Addend ---
Attending Addendum Attending Brief Note Patient seen and examined, was feeling very anxious. Kept on saying that she has CP. Patient was admitted to ICU for angina now transferred to medicine floor. Cardiac w/u neg and most likely cp related to anxiety. Pt did mention that she has been immobile for few weeks 2/2 to leg injury and was in a brace. Vital Signs Date Time Temp Pulse Resp B/P B/P Pulse O2 O2 Flow FiO2 Mean Ox Delivery Rate 06/26 0928 80 176/54 06/26 0927 80 176/54 06/26 0926 80 176/54 06/26 0654 97.8 80 20 176/54 95 06/26 0654 97.8 80 20 176/54 95 06/25 2306 98.6 84 20 178/50 94 Room Air 06/25 2201 90 172/62 06/25 1743 174/62 06/25 1642 174/62 06/25 1600 99.0 99 18 174/62 92 06/25 1450 96 186/60 97 Room Air 06/25 1431 96 186/60 on exam; aox3, nad, looks anxious. cv; s1,s2, rrr, no tenderness on chest exam. resp; clear abd; soft, nt, bs+ ext; no edema. Laboratory Tests 06/26 0734 Chemistry Sodium (137 - 145 mmol/L) 144 Potassium (3.5 - 5.1 mmol/L) 4.0 Chloride (98 - 107 mmol/L) 100 Carbon Dioxide (22 - 30 mmol/L) 33 H Anion Gap (5 - 16) 11 BUN (7 - 17 mg/dL) 31 H Creatinine (0.5 - 1.0 mg/dL) 1.6 H Estimated GFR (>60 ml/min) 32 L BUN/Creatinine Ratio (7 - 25 %) 19.4 Hematology CBC w Diff NO MAN DIFF REQ WBC (4.8 - 10.8 /CUMM) 6.9 RBC (4.20 - 5.40 /CUMM) 3.95 L Hgb (12.0 - 16.0 G/DL) 11.3 L Hct (37 - 47 %) 34.2 L MCV (81.0 - 99.0 FL) 86.5 MCH (27.0 - 31.0 PG) 28.5 MCHC (33.0 - 37.0 G/DL) 33.0 RDW (11.5 - 14.5 %) 16.0 H Plt Count (130 - 400 /CUMM) 201 MPV (7.4 - 10.4 FL) 8.9 Gran % (42.2 - 75.2 %) 61.9 Lymphocytes % (20.5 - 51.1 %) 23.1 Monocytes % (1.7 - 9.3 %) 9.8 H Eosinophils % (0 - 5 %) 4.6 Basophils % (0.0 - 2.0 %) 0.6 Absolute Granulocytes (1.4 - 6.5 /CUMM) 4.3 Absolute Lymphocytes (1.2 - 3.4 /CUMM) 1.6 Absolute Monocytes (0.10 - 0.60 /CUMM) 0.7 H Absolute Eosinophils (0.0 - 0.7 /CUMM) 0.3 Absolute Basophils (0.0 - 0.2 /CUMM) 0 A/P; 66-year-old female with past history significant for diabetes with complications, chronic kidney disease stage III, 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 Recent cardiac workup negative. Patient has significant anxiety. Also admits to immobility over the last few weeks secondary to leg injury. Will check a VQ scan to rule out any pulmonary embolism. Please consult psychiatry. Discontinue cardiac medications and follow further cardiac recommendations. Next line patient currently on lorazepam. Imdur dose will be increased to better control the blood pressure. Patient also on Ranexa per cardiology. DVT px: Heparin subcutaneous. If VQ scan negative with better BP control and seen by psych and possible discharge tomorrow.
--- NOTE | 2017-06-26 14:32 | NUCLEAR MEDICINE REPORT ---
EXAMINATION: PULMONARY VENTILATION PERFUSION STUDY CLINICAL INFORMATION: Shortness of breath. COMPARISON: No previous lung scan is available for comparison. A chest radiograph dated 06/23/2017 is available for comparison. TECHNIQUE: Serial gamma scintillation camera images were obtained over the posterior chest during the single breath, equilibrium rebreathing and washout of 6.0 mCi Xe 133 gas. The patient then received 4.3 mCi Tc-99m MAA intravenously and a 6-view perfusion study was performed. FINDINGS: Ventilation images: On the single breath and equilibrium images there is homogeneous distribution of gas bilaterally. During the washout phase there is no abnormal retention. Perfusion images: No segmental perfusion defects are present. There is homogeneous distribution of activity bilaterally. There are no focal anatomic appearing perfusion defects present. IMPRESSION: Normal radionuclide lung ventilation perfusion scan.
[2017-06-26] MEDS ORDERED: ISOSORBIDE MONO30 M1 PO (14:37)
[2017-06-26] MEDS ORDERED: ISOSORBIDE MONO60 M1 PO (14:40)
[2017-06-26 16:00] VITALS: BP 150/70
--- NOTE | 2017-06-26 18:10 | PN- Psychiatry ---
Assessment/Plan Impression: The patient is much improved from her panicky state yesterday, triggered by fear of not being able to catch her breath and fear of her lung scan, feeling that the results would be terrible, due to her long-time tobacco use. She has never been treated for any mental health illness, but reports that her daughter used to see a provider there, so she is familiar with the department. She is interested in being treated for insomnia, depression and anxiety, and evaluation of her occasional AH. She understands that in addition to talk therapy, a first-line medication, such as SSRI/SNRI may be proposed, with a gradual taper off her lorazepam. Due to her renal status, desvenlafaxine may be considered. Also, I had proposed increasing her gabapentin, as she had been taking 800 mg 2X/day before Lyrica was started. However, I would defer to nephrology for their recommendation; gabapentin has a sliding scale for renal dosing based on creatinine clearance. Suggestion: 1. Increase lorazepam 0.5 mg PO up to 4X/day as needed for severe anxiety. For a panic event, two tablets may be taken, as long as the maximum daily dose does not exceed 4 tablets. Please dispense enough to last until the patient is seen by her new provider at [facility], which may be more than a week after discharge. Hold for oversedation or respiratory failure. The patient verbalizes understanding that the use of this medication can increase the risk for falls; the patient has had a fall with fracture of unknown etiology in April,. 2. The patient has an intake appointment at [facility] on 06/29/17, at 1015 with [facility] [address] [facility] A card withthis information was provided to the patient. 3. Continue gabapentin 100 mg PO up to 3X/day, as needed for anxiety, an off- label use. 4. Please ask for comment from nephrology about renal dosing of gabapentin. The patient would use this for neuropathic pain in her feet, as well as anxiety, as above. She is unsure if her Lyrica will be re-started. Subjective Subjective: The patient is calm and conversational. She is alert and oriented, and reports a great deal of relief after her lung scan this afternoon. She denies AH or VH, and presents no kris delusions. She reminds this abstract writer that she has had several instances, months apart, where she has heard someone calling her name; the last event was earlier this week. She scales her current anxiety as 3/10; depression 8/10; 10/10 is the worst. She denies hopelessness, helplessness and worthlessness. She denies SI or HI. Review of Systems Neurological/Psychological: Reports: anxiety, depressed. Objective Last 24 Hrs of Vital Signs/I&O Vital Signs Date Time Temp Pulse Resp B/P B/P Pulse O2 O2 Flow FiO2 Mean Ox Delivery Rate 06/26 1751 76 150/70 06/26 1600 98.8 76 20 150/70 92 Room Air 06/26 0928 80 176/54 06/26 0927 80 176/54 06/26 0926 80 176/54 06/26 0654 97.8 80 20 176/54 95 06/26 0654 97.8 80 20 176/54 95 06/25 2306 98.6 84 20 178/50 94 Room Air 06/25 2201 90 172/62 Intake & Output 06/26 1600 06/26 0800 06/26 0000 Intake Total 600 480 240 Output Total Balance 600 480 240 Intake, Oral 600 480 240 Number 0 0 Bowel Movements Patient 155 lb Weight Physical Exam: Not performed Physical Exam General Appearance: no apparent distress, alert, awake Ears, Nose, Throat: When not talking, intermittent tongue extension and rolling. Neurologic/Psychiatric: awake, alert, oriented x 3 Current Medications: Current Medications Sig/Med Start time Last Medication Dose Route Stop Time Status Admin Acetaminophen 650 MG Q8 PRN 06/26 1130 AC 06/26 PO 1216 Amlodipine Besylate 5 MG DAILY 06/26 1000 AC 06/25 PO 1642 Aspirin Buffered 81 MG DAILY 06/24 1000 06/26 PO 0922 Atorvastatin Calcium 40 MG 1700 06/24 1700 AC 06/26 PO 1750 Budesonide/ 2 PUF BID 06/24 1500 AC 06/26 Formoterol Fumarate INH 0929 Clopidogrel Bisulfate 75 MG DAILY 06/24 1000 AC 06/26 PO 0923 Ezetimibe 10 MG DAILY 06/25 1000 AC 06/26 PO 0926 Famotidine 20 MG DAILY 06/25 1000 AC 06/26 PO 0923 Folic Acid 1 MG DAILY 06/25 1000 AC 06/26 PO 0923 Furosemide 40 MG BID 06/24 2200 AC 06/26 PO 0923 Gabapentin 100 MG Q8 06/25 1145 AC 06/26 PO 1335 Heparin Sodium 5,000 UNIT Q8 06/24 2200 AC 06/26 (Porcine) SC 1334 Insulin Aspart 0 TIDAC 06/24 1200 AC 06/26 SC 1751 Insulin Detemir 20 UNITS AT BEDTIME 06/25 2200 AC 06/25 SC 2201 Isosorbide 60 MG DAILY 06/27 1000 AC Mononitrate PO Isosorbide 30 MG ONCE ONE 06/26 1445 DC 06/26 Mononitrate PO 06/26 1446 1751 Isosorbide 30 MG DAILY 06/24 1501 DC 06/26 Mononitrate PO 0928 Lorazepam 0.5 MG BID PRN 06/24 1730 AC 06/26 PO 07/01 1729 0929 Metoprolol Succinate 25 MG DAILY 06/25 1000 AC 06/26 PO 0927 Ranolazine 500 MG BID 06/25 1000 AC 06/26 PO 0926 Thiamine HCl 100 MG DAILY 06/25 1000 AC 06/26 PO 0926 Tiotropium [place] 1 PUF DAILY 06/24 1500 AC 06/26 INH 0929 Results Last 24 Hrs of Labs/Mics: Laboratory Tests 06/26 0734 Chemistry Sodium (137 - 145 mmol/L) 144 Potassium (3.5 - 5.1 mmol/L) 4.0 Chloride (98 - 107 mmol/L) 100 Carbon Dioxide (22 - 30 mmol/L) 33 H Anion Gap (5 - 16) 11 BUN (7 - 17 mg/dL) 31 H Creatinine (0.5 - 1.0 mg/dL) 1.6 H Estimated GFR (>60 ml/min) 32 L BUN/Creatinine Ratio (7 - 25 %) 19.4 Hematology CBC w Diff NO MAN DIFF REQ WBC (4.8 - 10.8 /CUMM) 6.9 RBC (4.20 - 5.40 /CUMM) 3.95 L Hgb (12.0 - 16.0 G/DL) 11.3 L Hct (37 - 47 %) 34.2 L MCV (81.0 - 99.0 FL) 86.5 MCH (27.0 - 31.0 PG) 28.5 MCHC (33.0 - 37.0 G/DL) 33.0 RDW (11.5 - 14.5 %) 16.0 H Plt Count (130 - 400 /CUMM) 201 MPV (7.4 - 10.4 FL) 8.9 Gran % (42.2 - 75.2 %) 61.9 Lymphocytes % (20.5 - 51.1 %) 23.1 Monocytes % (1.7 - 9.3 %) 9.8 H Eosinophils % (0 - 5 %) 4.6 Basophils % (0.0 - 2.0 %) 0.6 Absolute Granulocytes (1.4 - 6.5 /CUMM) 4.3 Absolute Lymphocytes (1.2 - 3.4 /CUMM) 1.6 Absolute Monocytes (0.10 - 0.60 /CUMM) 0.7 H Absolute Eosinophils (0.0 - 0.7 /CUMM) 0.3 Absolute Basophils (0.0 - 0.2 /CUMM) 0
[2017-06-26 23:00] VITALS: BP 165/70
[2017-06-27 07:01] VITALS: BP 158/71
--- NOTE | 2017-06-27 09:59 | PN- Housestaff ---
[facility] Subjective Follow-up For: Chest pain R/O ACS Severe anxiety HTN Subjective: No overnight events. Patient remained afebrile overnight. Seen and examined this morning. Patient denied any chest pain, short of breath, nausea, vomiting, chills, fever, abdominal pain dysuria. She reported having anxiety attacks and having palpitations during the attacks. Review of Systems Constitutional: Reports: no symptoms. EENTM: Reports: no symptoms. Cardiovascular: Reports: no symptoms. Respiratory: Reports: no symptoms. Gastrointestinal: Reports: no symptoms. Genitourinary: Reports: no symptoms. Musculoskeletal: Reports: no symptoms. Neurological/Psychological: Reports: anxiety. Objective Last 24 Hrs of Vital Signs/I&O Vital Signs Date Time Temp Pulse Resp B/P B/P Pulse O2 O2 Flow FiO2 Mean Ox Delivery Rate 06/27 1008 80 158/71 06/27 1008 80 158/71 06/27 1007 80 158/71 06/27 1006 80 158/71 06/27 0701 97.7 80 18 158/71 97 06/26 2300 98.5 75 20 165/70 94 Room Air 06/26 2058 70 165/70 06/26 1751 76 150/70 06/26 1600 98.8 76 20 150/70 92 Room Air Intake & Output 06/27 1600 06/27 0800 06/27 0000 Intake Total 240 480 Output Total Balance 240 480 Intake, Oral 240 480 Physical Exam General Appearance: Alert, Oriented X3, Cooperative Skin Temp/Moisture Exam: Warm/Dry Sepsis Skin Exam (color): Normal for Ethnicity HEENT: Atraumatic, PERRLA, EOMI Neck: Supple Cardiovascular: Normal S1, Normal S2 Lungs: Clear to Auscultation Abdomen: Soft, No Tenderness Neurological: Normal Speech, Strength at 5/5 X4 Ext, Normal Tone, Sensation Intact Extremities: No Edema, Dryness of the skin Assessment/Plan Assessment: 66-year-old female with past medical history of HTN, IDDM, CAD s/p 3 stents, CHF , and COPD, who was initially brought in for shortness of breath due to anxiety. However in ED she developed typical anginal chest pain and subsequent EKG changes of ST depressions in all leads. Given EKG changes and chest pain in this patient with significant cardiac history there was concern for unstable angina. She has a LINDA score of 6 with 41% risk of , TN or urgent revascularization by day 14. Initially she was kept in ICU and was transferred to general medical floor after stabilization. Unstable Angina: Patient had typical anginal chest pain that did not remit at rest though she does mention improvement with SL Nitroglycerin. She has significant history of CAD and was seen recently in [facility] for an NSTEMI. Patient does not seem like she is in florid heart failure as her BNP is 3500 and with previous value noted at 19,800. Echo in May 21 shows mild LAE, TR, RVSP 45, mild , EF 65%. -Patient had a stress test 06/23 which is reportedly normal with no signs of ischemia -She was offered a cardiac cath given her cardiac history, but at this point she refused. -She will be managed medically. -Continue Aspirin and Plavix -Will add Imdur 60mg and Ranexa 500mg to home medications to optimize medical therapy. -Continue atorvatatin -continue home metoprolol History of Diabetes: -Insulin sliding scale -Accucheks COPD: -TR -continue home inhalers as needed. Anxiety: -Was evaluated by psychiatry today. -Recommend Lorazepam 0.5 mg PO up to 3X/day, as needed, for panic or severe anxiety. -Gabapentin 100 mg PO 3X/day for anxiety. Can be gradually titrated up. History of Hypertension: -Continue Amlodipine and Furosemide. CODE STATUS: Full code DVT prophylaxis: Mechanical and subcutaneous heparin. Problem List: 1. Anxiety Pain Ratin Pain Location: none Pain Goal: Remain pain free Pain Plan: tylenol for mild pain Tomorrow's Labs & Rationales: none Brittanie Paige MD 06/27/17 1328: Attending MD Review Statement Attending Statement Attending MD Statement: examined this patient, discuss w/resident/PA/HORN PLAYER, agreed w/resident/PA/HORN PLAYER, reviewed EMR data (avail), discussed with nursing, discussed with case mgmt, reviewed images, amended to note Attending Assessment/Plan: Patient seen and examined, overall doing slightly better. VQ scan was negative yesterday for any PE. Patient was seen by psych and they recommended to increase the frequency off her Ativan. Patient currently denies any chest pain. Her blood pressure is better controlled with increased dose of Imdur. Medically she stable for discharge home today and will be given a prescriptions for all the medications including Ativan. We'll stop her Xanax.
[2017-06-27 10:08] VITALS: BP 158/71
[2017-06-27] MEDS ORDERED: LORAZEPAM0.5 M1 PO (11:40)
[2017-06-27] MEDS ORDERED: RANEXA500 M1 PO (13:50)
[2017-06-27] MEDS ORDERED: GABAPENTIN100 M2 PO (13:50)
[2017-06-27] MEDS ORDERED: ISOSORBIDE MONO60 M1 PO (13:50)
== END 2017-06-27 14:14 | disposition home health service (06) | DRG 303 ==
LOC: ERH 20:33 → ERHI 06-24 00:33 → CRI 06-24 00:33 → 2NB 06-24 00:33 → CRI 06-24 04:44 → 2NB 06-25 20:24 → ENPENDDIS 06-27 11:24 → ENTRNSPT 06-27 13:33 → EDTRNSPTSTS 06-27 14:11 → EDTRNSPTTM 06-27 14:11 → 2NB 06-27 14:14 → CMPTRNSPT 06-27 14:23
PROVIDERS: Internal Medicine; Pediatrics; Physician Assistant Medical
DX: I25.110 Atherosclerotic heart disease of native coronary artery with unstable angina pectoris (principal); E11.21 Type 2 diabetes mellitus with diabetic nephropathy; E11.42 Type 2 diabetes mellitus with diabetic polyneuropathy; I13.0 Hypertensive heart and chronic kidney disease with heart failure and stage 1 through stage 4 chronic kidney disease, or unspecified chronic kidney disease; I50.32 Chronic diastolic (congestive) heart failure; E11.319 Type 2 diabetes mellitus with unspecified diabetic retinopathy without macular edema; J44.9 Chronic obstructive pulmonary disease, unspecified; Z79.4 Long term (current) use of insulin; F41.9 Anxiety disorder, unspecified; Z87.891 Personal history of nicotine dependence; Z79.82 Long term (current) use of aspirin; Z82.49 Family history of ischemic heart disease and other diseases of the circulatory system; Z95.5 Presence of coronary angioplasty implant and graft; M06.9 Rheumatoid arthritis, unspecified; E03.9 Hypothyroidism, unspecified; G47.30 Sleep apnea, unspecified; I25.2 Old myocardial infarction; K52.9 Noninfective gastroenteritis and colitis, unspecified; Z79.51 Long term (current) use of inhaled steroids; N18.3 Chronic kidney disease, stage 3 (moderate)
CPT/HCPCS: 2NBSP; CCU; 36415; 71045; 78582; 81001; 82436; 93005; 93010; 97116-GO; 97161-GP; 97530-GO; 99232; 99233; A9540; A9558; J1644; J1815; J2060; J3490